=== PATIENT | female | born 1945 | race Caucasian/White ===

== ENCOUNTER 2017-08-23 16:45 | Inpatient (IN) ==
[2017-08-23] MEDS ORDERED: ONDANSETRON 4 MG/2 ML INJECTION IVP PRN (17:18)
--- NOTE | 2017-08-23 17:24 | History & Physical Report ---
History of Present Illness Date: 08/23/17 Chief complaint: Sepsis, UTI HPI: Viridiana is a 72-year-old female was evaluated acutely today at [facility] emergency room for altered mentation. Initially she was found to be hypotensive with a systolic blood pressure of 76. Further workup was completed in the emergency room. Patient was found to have an elevated white count of 17.6 , hemoglobin 13.2, hematocrit 38 him a platelet count 182. Sodium 142, potassium 4.5, BUN 34, creatinine 1.2, CRP 21, troponin undetectable. Her analysis was obtained showing trace blood, trace ketones, 1+ protein, positive nitrites, 2+ leukocytes esterase with 10-20 WBCs. INR 3.4. Plasma lactate was found to be elevated at 1.4 indicating sepsis process. Digoxin 1.42, proBNP 358. CXR reveled central pulmonary vascular congestion. In the severity of her acute illness, sepsis process was felt that patient needed intensive care unit treatment. [facility] was contacted by [facility] and accepted patient for direct admission as there are current ICU bed availability. Patient is seen on arrival to [facility]. She is sleeping. She is currently on room air without evidence of distress. She does have a very thick, moist sounding cough. BP Is noted to be in the 120 systolic on arrival. Heart rate in the 90s as she does appear to be in atrial fibrillation, which does not appear to be new. Patient is nonverbal and will not awaken or answer questions during examination. All of history and information is obtained from old records. It does appear patient is a long term resident at [facility] . She does have advanced dementia and it is reported that her is her DPOA whom wishes for her to be a do not resuscitate. Review of Systems ROS unobtainable: due to mental status Review of systems: Unable to obtain due to mental status Past Medical History Atrial fibrillation. Chronic anticoagulation= warfarin Coronary artery disease Type II diabetes Hypertension Parkinson's Dementia Hyperlipidemia overactive bladder Anxiety History of CVA History of ovarian cancer Surgical History: Heart catheterization-2013. Cardiac pacemaker. Appendectomy. Hysterectomy. Shoulder replacement Family History Updates: Mother-heart disease, cancer, diabetes - Social History Smoking status: Unknown if ever smoked Substance use type: does not use Alcohol intake frequency: does not drink Housing: long term ([facility]) Social history: Patient resides in [facility], [facility] facility. Patient's primary care provider is Dr. Emili Whittington Medications Allergies Allergy/AdvReac Type Severity Reaction Status Date / Time latex Allergy Intermediate Rash Verified 08/23/17 17:42 Exam Telemetry Rhythm: A-fib - Constitutional Present: moderate distress - Routine HEENT Exam ENT: Present: mucous membranes dry - Routine Respiratory Exam Present: crackles Comments: course breath sound throughout - Routine Cardiovascular Exam Present: S1, S2, tachycardia, irregular rhythm - Routine Abdominal Exam Present: soft, normoactive bowel sounds, non distended - Routine Extremities Exam Present: edema (trace BLE) - Routine Skin Exam Present: pallor - Routine Neurological Exam Present: altered mental status - Routine Psychiatric Exam Present: unable to assess Assessment and Plan (1) Sepsis Current visit: Yes Status: Acute (2) UTI (urinary tract infection) Current visit: Yes Status: Acute (3) A-fib Current visit: Yes Status: Chronic (4) HTN (hypertension) Current visit: Yes Status: Chronic Assessment and Plan: Impression Sepsis-, tachycardia, leukocytosis, suspected infection, elevated venous lactate Urinary tract infection Encephalopathy Cough Atrial fibrillation Hypertension Type II diabetes Coronary artery disease Parkinson's disease Dementia Chronic anticoagulation on warfarin Plan Admit to ICU under the care of Dr. Montgomery for sepsis, encephalopathy Transfer records and laboratory studies reviewed from earlier today. qSOAF score on admission is 2/3- indication high risk of poor outcome related to sepsis/infection As for sepsis protocol, We will repeat venous lactate, pro calcitonin on admission. Blood cultures were obtained at [place] emergency room today. Need to find out if urine culture was obtained- Order placed for nursing staff to call [facility] ER. Obtain viral respiratory panel given significance in coughing Will continue with IV Rocephin and will add IV is azithromycin for further pulmonary coverage. Will recheck a chest x-ray tomorrow morning Consult placed respiratory therapy with NT suction as needed. They were able to obtain a sputum sample, will send this for culture, Gram stain. Will schedule DuoNeb breathing treatments 4 times a day and Pulmicort twice a day. Normal saline at 100 ML per hour for gentle hydration. Will need to monitor for evidence of fluid overload. Monitor on cardiac telemetry, he does have a known history of atrial fibrillation. Will need to monitor for any rapid rates. Speech therapy consultation is placed. Given concern for dysphasia and altered mental status. She may not be able to take oral medications. Recheck CBC, BMP and INR tomorrow morning to follow blood counts, renal function and electrolytes. Consult placed to pharmacy for management of chronic warfarin dosing. INR today was 3.4. Do not resuscitate order was sent with patient, and this order is written upon admission. Discuss further orders and plan of care with attending, Dr. Montgomery. At time of discharge medical care will return to patient's primary care provider in [place], Dr. Emili Whittington 08/23/2017-8:27 PM-I reviewed this chart, the patient history, and the DRY CHAIN PULLER's/PA 's documented findings as above. We discussed and formulated the assessment and plan as above with the additions below.-Dr. Montgomery The patient was seen this evening in CCU. Currently no family is present, a left to go to supper per her nurse. Per her nurse, family states that the patient is mostly nonverbal. She will occasionally say some words, but they do not make sense. Currently the patient is responsive to voice and touch. She will moan. She does not attempt to speak. I am unable to obtain any history from her, and history is obtained from old records and discussion with ER DrNino at [facility]. Currently temperature is 100.4 axillary, blood pressure is 107/57, pulse 86, O2 sat 93%, respiratory rate 25, she is on room air. On exam she is responsive to touch and voice. She is moaning. She appears chronically ill. HEENT reveals eyes to be closed, pupils are equal on exam but it is difficult as she does not assist. Oropharynx is continuously open and mouth is somewhat dry. Chest is clear to auscultation but somewhat difficult to assess due to continuous moaning. Cardiovascular reveals an irregularly irregular rhythm. Abdomen is soft , non-distended with hypoactive bowel sounds. Extremities are free of edema. SCDs are on. Viral respiratory panel is positive for human metapneumo virus Lactate is 2.0 up from 1.4. Pro calcitonin 0.4 Assessment and plan Sepsis-possibly secondary to human that a virus, versus UTI-we'll give Rocephin for possible UTI Azithromycin was added when there was concern for possible pneumonia, but with viral URI on viral respiratory panel, will discontinue azithromycin if there is no pneumonia on chest x-ray tomorrow. Repeat lactate later today. Urine output has decreased and will give a 500 cc normal saline fluid bolus now. Repeat 1 if needed. Will start scheduled rectal Tylenol for pain and fever Will have when necessary Ativan IV available. She is chronically on oral Ativan. Will add IV morphine if needed for pain controlled with Tylenol. The patient apparently has end-stage dementia. Will discuss further plans of care with family. We'll consult speech therapy to see the patient in the morning to see if she is able to swallow. Patient is DO NOT RESUSCITATE per her . Greater than 40 minutes of critical care time spent seeing and evaluating the patient in determining care plan. DVT Prophylaxis: Coumadin - Physician Narrative Narrative: Date: 08/23/17 Time: 1724 Hospital Course Summary Disclaimer: The visit summary below is not to be considered part of the above Progress Note. Hospital Course: Impression Sepsis-, tachycardia, leukocytosis, suspected infection, elevated venous lactate Urinary tract infection Encephalopathy Cough Atrial fibrillation Hypertension Type II diabetes Coronary artery disease Parkinson's disease Dementia Chronic anticoagulation on warfarin Plan Admit to ICU under the care of Dr. Montgomery for sepsis, encephalopathy Transfer records and laboratory studies reviewed from earlier today. qSOAF score on admission is 2/3- indication high risk of poor outcome related to sepsis/infection As for sepsis protocol, We will repeat venous lactate, pro calcitonin on admission. Blood cultures were obtained at [place] emergency room today. Need to find out if urine culture was obtained- Order placed for nursing staff to call [facility]. Obtain viral respiratory panel given significance in coughing Will continue with IV Rocephin and will add IV is azithromycin for further pulmonary coverage. Will recheck a chest x-ray tomorrow morning Consult placed respiratory therapy with NT suction as needed. They were able to obtain a sputum sample, will send this for culture, Gram stain. Will schedule DuoNeb breathing treatments 4 times a day and Pulmicort twice a day. Normal saline at 100 ML per hour for gentle hydration. Will need to monitor for evidence of fluid overload. Monitor on cardiac telemetry, he does have a known history of atrial fibrillation. Will need to monitor for any rapid rates. Speech therapy consultation is placed. Given concern for dysphasia and altered mental status. She may not be able to take oral medications. Recheck CBC, BMP and INR tomorrow morning to follow blood counts, renal function and electrolytes. Consult placed to pharmacy for management of chronic warfarin dosing. INR today was 3.4. Do not resuscitate order was sent with patient, and this order is written upon admission. Discuss further orders and plan of care with attending, Dr. Montgomery. At time of discharge medical care will return to patient's primary care provider in [place], Dr. Emili Whittington
[2017-08-23] MEDS: NS 1,000 ML IV SCH (17:44)
[2017-08-23] MEDS ORDERED: WARFARIN - PHARMACY CONSULT MC ONE (17:47)
[2017-08-23] MEDS ORDERED: AZITHROMYCIN IV 500 MG in NS 250ml 250 ML IV SCH (18:00)
--- NOTE | 2017-08-23 18:11 | Pharmacy Consult ---
Pharmacy Consult-Warfarin - Laboratory Information WARFARIN THERAPY: Pt has Hx of chronic A. Fib, CAD, CVA. On warfarin - home dose not yet available. Current INR reported as 3.4. No dose tonight. INR ordered for morning. Thank you
[2017-08-23] MEDS: ACETAMINOPHEN 650 MG SUPPOSITORY PR SCH (20:39)
[2017-08-23] MEDS: ALBUTEROL/IPRATROPIUM 2.5mg-0.5mg/3ml NEB AEROSOL SCH (21:13)
[2017-08-23] MEDS: BUDESONIDE INH.SOLN 0.5mg/2ml NEB IPPB SCH (21:13)
[2017-08-23] MEDS: MORPHINE SULFATE 2mg INJECTION IVP PRN (21:39)
[2017-08-24] MEDS: NS 1,000 ML IV SCH (02:48)
[2017-08-24] MEDS: MORPHINE SULFATE 2mg INJECTION IVP PRN ×3 (03:21→08:31)
--- NOTE | 2017-08-24 07:55 | Pharmacy Consult ---
Pharmacy Consult-Warfarin - Laboratory Information 08/24/17 05:31 INR 3.95 H - Consult Information Warfarin Dosing Protocol, DC is a 72 yo that was admitted for sepsis and pneumonia (from [facility]). The patient has a history history of chronic A. Fib, CAD, and CVA. The patient is currently on anticoagulation therapy with a daily dose of Warfarin 2.5 mg oraly at 1900 daily. Date INR Dose 08/23 3.40 No dose given 08/24 3.95 No dose today The patient's INR was high when she came into the facility and it has increased today. This is due to the IV azithromycin which definitely increases the INR. I will hold the Warfarin dose today. The pharmacy will continue to monitor the INR's and will adjust the warfarin therapy accordingly. Thanks for the Warfarin Dosing Protocol, Ronaldo Campbell, Pharmacist
--- NOTE | 2017-08-24 08:09 | Progress Note ---
- Date 08/24/17 Subjective: As seen this morning in CCU. Currently no family is present. Per her nurse, she was more restless overnight and received Ativan and morphine. After that blood pressure was down into the high 80s but map was above 65. Oxygen saturation was 88-90% on room air. Urine output overnight was decreased and she has only had 328 mL's since admission. During examination this morning, the patient is more arousable. She is moaning, but opens her eyes and looks at me. She appears to attempt to answer questions but I cannot understand her. Objective Vital signs: Temperature 98.7 F 08/24/17 05:45 Pulse Rate 80 08/24/17 06:15 Respiratory Rate 18 08/24/17 06:15 Blood Pressure 93/55 08/24/17 06:15 Pulse Oximetry 92 08/24/17 06:15 Height/Weight/BMI: Height 1.65 m Weight 70 kg Body Mass Index 25.7 Comments: MAXIMUM TEMPERATURE 101.2, O2 sat currently 98% on room air, blood pressure 115/ 58, respirations 15 I&O since admission 2170/328 GEN-more alert, moaning, does not appear in distress HEENT-sclera anicteric, oropharynx is dry, she does have some mouth breathing CV-regularly irregular with controlled rate CHEST-clear anteriorly ABD-soft, nontender, hypoactive bowel sounds -Tapia catheter in place with dark urine EXT-no edema NEURO-significant for encephalopathy, tremors from Parkinson's SKIN-warm and dry, skin breakdown on the anterior shins. We'll DC SCDs Results - Labs CBC & Chem 7: 08/24/17 05:31 08/24/17 05:31 Labs: White count is 16.6 down from 17.6 yesterday. Sodium is 150 up from 140 to yesterday. Creatinine is 0.8 down from 1.2 yesterday. BUN is stable at 34. Initial lactate yesterday was 2.0 and improved to 1.3 Pro-calcitonin 0.4 Microbiology Results: Microbiology 08/23/17 17:57 Sputum, Induced Gram Stain - Final 08/23/17 17:57 Sputum, Induced Sputum Culture - Final Assessment and Plan (1) Sepsis Current visit: Yes Status: Acute (2) UTI (urinary tract infection) Current visit: Yes Status: Acute (3) A-fib Current visit: Yes Status: Chronic (4) HTN (hypertension) Current visit: Yes Status: Chronic Assessment and Plan: Impression Sepsis-, tachycardia, leukocytosis, suspected infection, elevated venous lactate Urinary tract infection Human metapneumovirus Possible pneumonia Encephalopathy Atrial fibrillation Hypertension Type II diabetes Coronary artery disease Parkinson's disease Dementia Chronic anticoagulation on warfarin-mild supratherapeutic INR Hypernatremia Chronic Ativan use Decreased urine output Plan Overall, the patient has done okay overnight. Vitals are fairly stable. qSOAF score on admission is 2/3- indication high risk of poor outcome related to sepsis/infection Lactate was 2.0 and improved to 1.3. She has not required supplemental oxygen. She has not had significant hypotension. Continue Rocephin for possible UTI. Azithromycin added for possible pneumonia with productive cough. Will continue with IV Rocephin and will add IV is azithromycin for further pulmonary coverage. Chest x-ray official report is pending but appears to show infiltrate versus edema on the right. Sputum culture was obtained and is pending. Continue DuoNeb breathing treatments 4 times a day and Pulmicort twice a day. Speech therapy consultation is placed. Given concern for dysphasia and altered mental status. She may not be able to take oral medications. Recheck CBC, BMP and INR tomorrow morning to follow blood counts, renal function and electrolytes. Continue Tylenol scheduled for pain. Ativan when necessary for anxiety, she is on chronic Ativan at home. Limit morphine if able. Hopefully, the patient will be able to swallow well today and we can resume her home medications Change IV fluids to half-normal saline with 20 of KCl to run at 125 an hour Check CBC and, renal panel and magnesium tomorrow Repeat chest x-ray tomorrow Discussed with the patient's and nurse. Greater than 40 minutes of critical care time spent seeing and evaluating the patient and determined the care plan. GI Prophylaxis: Pepcid Resuscitation Status: Do Not Resuscitate - Physician Narrative Physician: Padmini Pacheco MD Narrative: Date: 08/24/17 Time: 0805 Hospital Course Summary Disclaimer: The visit summary below is not to be considered part of the above Progress Note. Hospital Course: Impression Sepsis-, tachycardia, leukocytosis, suspected infection, elevated venous lactate Urinary tract infection Encephalopathy Cough Atrial fibrillation Hypertension Type II diabetes Coronary artery disease Parkinson's disease Dementia Chronic anticoagulation on warfarin Plan Admit to ICU under the care of Dr. Montgomery for sepsis, encephalopathy Transfer records and laboratory studies reviewed from earlier today. qSOAF score on admission is 2/3- indication high risk of poor outcome related to sepsis/infection As for sepsis protocol, We will repeat venous lactate, pro calcitonin on admission. Blood cultures were obtained at [place] emergency room today. Need to find out if urine culture was obtained- Order placed for nursing staff to call [facility] ER. Obtain viral respiratory panel given significance in coughing Will continue with IV Rocephin and will add IV is azithromycin for further pulmonary coverage. Will recheck a chest x-ray tomorrow morning Consult placed respiratory therapy with NT suction as needed. They were able to obtain a sputum sample, will send this for culture, Gram stain. Will schedule DuoNeb breathing treatments 4 times a day and Pulmicort twice a day. Normal saline at 100 ML per hour for gentle hydration. Will need to monitor for evidence of fluid overload. Monitor on cardiac telemetry, he does have a known history of atrial fibrillation. Will need to monitor for any rapid rates. Speech therapy consultation is placed. Given concern for dysphasia and altered mental status. She may not be able to take oral medications. Recheck CBC, BMP and INR tomorrow morning to follow blood counts, renal function and electrolytes. Consult placed to pharmacy for management of chronic warfarin dosing. INR today was 3.4. Do not resuscitate order was sent with patient, and this order is written upon admission. Discuss further orders and plan of care with attending, Dr. Montgomery. At time of discharge medical care will return to patient's primary care provider in [place], Dr. Emili Whittington 08/23/2017-8:27 PM-I reviewed this chart, the patient history, and the CLOTH SHEARING SUPERVISOR's/PA 's documented findings as above. We discussed and formulated the assessment and plan as above with the additions below.-Dr. Montgomery The patient was seen this evening in CCU. Currently no family is present, a left to go to supper per her nurse. Per her nurse, family states that the patient is mostly nonverbal. She will occasionally say some words, but they do not make sense. Currently the patient is responsive to voice and touch. She will moan. She does not attempt to speak. I am unable to obtain any history from her, and history is obtained from old records and discussion with ER at [facility]. Currently temperature is 100.4 axillary, blood pressure is 107/57, pulse 86, O2 sat 93%, respiratory rate 25, she is on room air. On exam she is responsive to touch and voice. She is moaning. She appears chronically ill. HEENT reveals eyes to be closed, pupils are equal on exam but it is difficult as she does not assist. Oropharynx is continuously open and mouth is somewhat dry. Chest is clear to auscultation but somewhat difficult to assess due to continuous moaning. Cardiovascular reveals an irregularly irregular rhythm. Abdomen is soft , non-distended with hypoactive bowel sounds. Extremities are free of edema. SCDs are on. Viral respiratory panel is positive for human metapneumo virus Lactate is 2.0 up from 1.4. Pro calcitonin 0.4 Assessment and plan Sepsis-possibly secondary to human that a virus, versus UTI-we'll give Rocephin for possible UTI Azithromycin was added when there was concern for possible pneumonia, but with viral URI on viral respiratory panel, will discontinue azithromycin if there is no pneumonia on chest x-ray tomorrow. Repeat lactate later today. Urine output has decreased and will give a 500 cc normal saline fluid bolus now. Repeat 1 if needed. Will start scheduled rectal Tylenol for pain and fever Will have when necessary Ativan IV available. She is chronically on oral Ativan. Will add IV morphine if needed for pain controlled with Tylenol. The patient apparently has end-stage dementia. Will discuss further plans of care with family. We'll consult speech therapy to see the patient in the morning to see if she is able to swallow. Patient is DO NOT RESUSCITATE per her . Greater than 40 minutes of critical care time spent seeing and evaluating the patient in determining care plan.
[2017-08-24] MEDS: 1/2 NS 1,000 ML IV SCH ×2 (08:20→22:45)
[2017-08-24] MEDS: ACETAMINOPHEN 650 MG SUPPOSITORY PR SCH ×4 (08:20→23:12)
--- NOTE | 2017-08-24 08:28 | XRay Report ---
Indication: sepsis, coughing PROCEDURE: XR chest 1V: Encounter: Initial Comparison: None Findings: Airspace consolidation in the right mid to lower lung field with an elevated right hemidiaphragm and small right effusion. No pneumothorax. Left lung appears clear. Heart size and mediastinal contours are normal. Left pacemaker pulmonary vascularity appears normal on the left. Left shoulder replacement. Severe degenerative change in the right shoulder. Impression: Right-sided pneumonia or aspiration. .
[2017-08-24] MEDS ORDERED: VANCOMYCIN - PHARMACY CONSULT MC ONE (08:50)
[2017-08-24] MEDS: BUDESONIDE INH.SOLN 0.5mg/2ml NEB IPPB SCH ×2 (08:57→20:36)
[2017-08-24] MEDS: ALBUTEROL/IPRATROPIUM 2.5mg-0.5mg/3ml NEB AEROSOL SCH ×4 (08:57→20:36)
[2017-08-24] MEDS ORDERED: CEFTRIAXONE 1 G in NS 100 ML IV SCH (09:00)
[2017-08-24] MEDS: PIPERACILLIN/TAZOBACTAM 3.375 GM in NS 100 ML IV SCH ×3 (10:03→22:43)
--- NOTE | 2017-08-24 10:49 | Pharmacy Consult-Antibiotics ---
Pharmacy Consult-Vancomycin - Laboratory Information WBC 16.6 T/MM3 (4.5-11.0) H 08/24/17 05:31 BUN 34.0 MG/DL (7-17) H 08/24/17 05:31 Creatinine 0.8 MG/DL (0.7-1.2) 08/24/17 05:31 Procalcitonin 0.40 NG/ML 08/23/17 17:56 - Consult Information VANCOMYCIN CONSULT: 72 yr female 5'5" 72.7 kg Dx: Sepsis,Encephalopathy,possible Pneumonia Current Renal Fx: SCr = 0.8 mg/dl. Will give Vancomycin 1750 mg IV q24hrs. Will continue to monitor and adjust regimen to maintain therapeutic levels. Thank you. Kate Bishop PharmD
[2017-08-24] MEDS: FAMOTIDINE PB 20 MG/50 ML BAG IV SCH ×2 (11:46→23:32)
--- NOTE | 2017-08-24 15:23 | Wound Care Progress Note ---
Wound Center Progress Note: Pt seen for wound consultation, seen with Shantelle RN. Pt lying in bed, at bedside, no complaints of pain. Pt wears briefs at home and is incontinent. Consult r/t wounds on L buttock and bilateral anterior lower legs. L buttock: Stage 2 PI, wound bed has pink non-granulating tissue, no drainage on dressing removed. Periwound: blanchable erythema. Bilateral anterior lower legs: states he believes these wounds are do to pt rubbing up against the lift. Multiple scattered crusts/scabs, no open areas at this time, no drainage. Periwound: blanchable erythema. Wound dressings: To L buttock: Clean with wound cleanser, apply barrier cream, cover with mepilex border, and off load, change q 3 days and PRN. To bilateral lower legs: Clean with cleanser, apply A&D ointment daily. Heels: pink and blanchable. Off load with regular repositioning, float heels.
--- NOTE | 2017-08-24 15:26 | Wound Care Progress Note ---
Wound Management - Patient Status Premedicated Prior to Dressing Change: No - Wound Bilateral Lower Anterior Leg Wound Type: Abrasion Wound Present on Admission?: Yes Length: 6 (composite) Width: 3 (composite) Depth: 0.1 Magi Wound Appearance: [place] Tunneling: No Undermining: No Drainage Amount: None Drainage Odor: No Odor Dressing Status: Open to Air Dressing Change Date: 08/24/17 Dressing Change Time: 12:50 Dressing Change Patient Tolerance: Tolerated Well (A&D applied to bilateral anterior legs, change daily and PRN) Microbiology: Microbiology 08/23/17 17:57 Sputum, Induced Gram Stain - Final 08/23/17 17:57 Sputum, Induced Sputum Culture - Final Left Medial Buttock Wound Type: Pressure Injury Wound Present on Admission?: Yes Wound Staging: Stage II Length: 2 Width: 1.3 Depth: 0.1 Wound Bed Appearance: [place] Magi Wound Appearance: [place] Tunneling: No Undermining: No Drainage Amount: None Drainage Odor: No Odor Dressing Status: Changed Secondary Dressing: Foam Dressing Dressing Change Date: 08/24/17 Dressing Change Time: 12:50 Dressing Change Patient Tolerance: Tolerated Well (Barrier cream applied, covered with Mepilex, change q 3 days and PRN.) Microbiology: Microbiology 08/23/17 17:57 Sputum, Induced Gram Stain - Final 08/23/17 17:57 Sputum, Induced Sputum Culture - Final
[2017-08-24] MEDS ORDERED: FALL RISK - PHARMACY CONSULT XX ONE (17:38)
[2017-08-24] MEDS ORDERED: NITROGLYCERIN 0.4 MG SUBLINGUAL TABLET SL PRN (18:55)
[2017-08-24] MEDS ORDERED: BISACODYL 10 MG SUPPOSITORY RECTALLY PRN (18:55)
[2017-08-24] MEDS: LORazepam 0.5 MG TABLET PO SCH (23:11)
[2017-08-24] MEDS: ATORVASTATIN 20 MG TABLET PO SCH (23:12)
[2017-08-24] MEDS: BUSPIRONE 10 MG TABLET PO SCH (23:12)
[2017-08-24] MEDS: DONEPEZIL 10 MG TABLET PO SCH (23:12)
[2017-08-24] MEDS: ROPINIROLE 3 MG TABLET PO SCH (23:13)
[2017-08-25] MEDS: 1/2 NS with KCL 20mEq 1,000 ML IV SCH ×3 (01:02→05:23)
[2017-08-25] MEDS: PIPERACILLIN/TAZOBACTAM 3.375 GM in NS 100 ML IV SCH ×5 (04:36→21:09)
[2017-08-25] MEDS: D5W 1,000 ML IV SCH (05:56)
[2017-08-25] MEDS: MORPHINE SULFATE 2mg INJECTION IVP PRN ×3 (06:05→14:57)
[2017-08-25] MEDS: BUDESONIDE INH.SOLN 0.5mg/2ml NEB IPPB SCH ×2 (08:03→19:57)
[2017-08-25] MEDS: ALBUTEROL/IPRATROPIUM 2.5mg-0.5mg/3ml NEB AEROSOL SCH (08:03)
[2017-08-25] MEDS: FAMOTIDINE PB 20 MG/50 ML BAG IV SCH (08:17)
[2017-08-25] MEDS: DIGOXIN 125 MCG TABLET PO SCH (08:48)
[2017-08-25] MEDS: ACETAMINOPHEN 650 MG SUPPOSITORY PR SCH ×4 (08:49→21:03)
[2017-08-25] MEDS: LORazepam 0.5 MG TABLET PO SCH ×2 (08:49→21:07)
[2017-08-25] MEDS: ROPINIROLE 3 MG TABLET PO SCH ×3 (08:50→21:09)
[2017-08-25] MEDS: BUSPIRONE 10 MG TABLET PO SCH ×2 (08:51→21:07)
--- NOTE | 2017-08-25 09:11 | Progress Note ---
- Date 08/25/17 Subjective: 72y/o female was evaluated acutely on 08/23/16 at [facility] emergency room for altered mentation. Initially she was found to be hypotensive with a systolic blood pressure of 76. Further workup was completed in the emergency room. Patient was found to have an elevated white count of 17.6, hemoglobin 13.2, hematocrit 38 him a platelet count 182. Sodium 142, potassium 4.5, BUN 34, creatinine 1.2, CRP 21, troponin undetectable. Urine analysis was obtained showing trace blood, trace ketones, 1+ protein, positive nitrites, 2+ leukocytes esterase with 10-20 WBCs. INR 3.4. Plasma lactate was found to be elevated at 1.4 indicating sepsis process. Digoxin 1.42, proBNP 358. CXR revealed central pulmonary vascular congestion. In the severity of her acute illness and sepsis it was felt that patient needed intensive care unit treatment. [facility] [place] so [facility] was contacted and accepted patient for direct admission as there are current ICU bed availability. Patient was seen on arrival to [facility]. She was sleeping. She was on room air without evidence of distress. She has a very thick, moist sounding cough. BP was noted to be in the 120 systolic on arrival. Heart rate in the 90s as she does appear to be in atrial fibrillation, which does not appear to be new. Patient was nonverbal and will not awaken or answer questions during examination. All of history and information is obtained from old records. It does appear patient is a [facility]p resident at [facility] . She does have advanced dementia and it is reported that her is her DPOA whom wishes for her to be a do not resuscitate. 08/24/16: Pt seen. No family present. Per her nurse, she was more restless overnight and received Ativan and morphine. After that blood pressure was down into the high 80s but map was above 65. Oxygen saturation was 88-90% on room air. Urine output overnight was decreased and she has only had 328 mL's since admission. During the examination, the patient is more arousable. She is moaning , but opens her eyes and looks at me. She appears to attempt to answer questions but I cannot understand her. Today, her is in the room. The patient is being fed breakfast. She is talking that is not understandable and her says that's pretty much baseline for her. She is unable to answer any questions appropriately for me. She cannot tell me her name. She tells me she's not in any pain. She denies feeling shortness of breath. She has a very course moist cough. She is not spinning anything out. She is on 2 L by nasal cannula. Her saturations are good. Her blood pressure and heart rate or within normal limits. She has a Tapia in place. Further review of systems is relatively unobtainable due to her confusion and inability to communicate appropriately. Objective Vital signs: Temperature 96.8 F 08/24/17 16:00 Pulse Rate 81 08/25/17 08:48 Respiratory Rate 18 08/25/17 08:03 Blood Pressure 115/55 08/25/17 04:30 Pulse Oximetry 97 08/25/17 08:03 Height/Weight/BMI: Height 1.65 m Weight 72.7 kg Body Mass Index 26.6 Comments: Gen: confused. Not oriented to person, place or time. at bedside states this is baseline. Skin: warm and dry HEENT: NC/AT PERRL, EOMI. Sclera, lids and conjunctiva wnl. MMM, OP clear. Neck: supple. No JVD. Carotids 2+ without bruits Lungs: very coarse wet sounding breath sounds. No wheezes. Upper airway congestion. CV: irregular, No murmur, rub or gallop No edema. Palpable pedal pulses. Abd: Soft, NT/ND. +BS. MS: CARLTON Neuro: VINCENT, Neuro exam is really untestable do to inability to understand directions. She is swollowing okay. Results - Labs CBC & Chem 7: 08/25/17 05:10 08/25/17 05:10 Microbiology Results: Microbiology 08/23/17 17:57 Sputum, Induced Gram Stain - Final 08/23/17 17:57 Sputum, Induced Sputum Culture - Final Assessment and Plan (1) Sepsis Current visit: Yes Status: Acute (2) UTI (urinary tract infection) Current visit: Yes Status: Acute (3) A-fib Current visit: Yes Status: Chronic (4) HTN (hypertension) Current visit: Yes Status: Chronic Assessment and Plan: Assessment and Plan: 1. Sepsis-, tachycardia, leukocytosis, elevated venous lactate -UTI -Human metapneuomovirus -On vanco and zosyn 2. Encephalopathy -Baseline severe dementia- thinks she is back to baseling -Likely worsened by infection 3. Urinary tract infection -On vanco and zosyn 4. Human metapneumovirus -Resp therapy 5. Permanent Atrial fibrillation-S/P PPM -rates controlled. -Patient on digoxin and Coumadin 6. Right side PNA or aspiration on CXR 08/24/17 -Resp therapy -Vanco and zosyn 7. Hypertension -blood pressures are well controlled off her home medications of core egg 6.25 mg BID, lisinopril 5 mg daily and injured 30 mg daily. 8. Type II diabetes -blood sugars appear to be fairly well controlled. 9. Coronary artery disease -difficult to assess but does not appear to be any current pain. -Was not on aspirin at home only the Coumadin. -Was on Ranexa and Imdur as well as coreg for anti-anginal medications at home. -History of 2 stents -her dye range tender is Dr. Nino Wheeler 10.Parkinson's disease -on Sinemet. 11. Severe Dementia -patient is on Aricept -I did discuss the possibility of comfort care with the . 12. Supratherapeutic INR -No signs of bleeding -continue to hold coumadin 13. Hypernatremia -this is up again today. -Her IV fluids have been changed to D5 water at 75ml/hr.. -Will recheck lab in a.m. 14. Chronic Ativan use -Continue 15. Dysphagia -speech did evaluate the patient and recommended pured food and thickened liquids. Recommended crushing meds and applesauce for intake. 16. Prophylaxis -PPI and pt supratherapeutic on coumadin I discussed with the today the concept of comfort care. I told him that' s an option and that perhaps he can discuss with the rest of family members if this is something they might want to consider. Greater than 40 minutes of critical care time was spent seeing and evaluating the patient. - Physician Narrative Narrative: Date: 08/25/17 Time: 906 Hospital Course Summary Disclaimer: The visit summary below is not to be considered part of the above Progress Note. Hospital Course: Impression Sepsis-, tachycardia, leukocytosis, suspected infection, elevated venous lactate Urinary tract infection Encephalopathy Cough Atrial fibrillation Hypertension Type II diabetes Coronary artery disease Parkinson's disease Dementia Chronic anticoagulation on warfarin Plan Admit to ICU under the care of Dr. Montgomery for sepsis, encephalopathy Transfer records and laboratory studies reviewed from earlier today. qSOAF score on admission is 2/3- indication high risk of poor outcome related to sepsis/infection As for sepsis protocol, We will repeat venous lactate, pro calcitonin on admission. Blood cultures were obtained at [place] emergency room today. Need to find out if urine culture was obtained- Order placed for nursing staff to call [facility]. Obtain viral respiratory panel given significance in coughing Will continue with IV Rocephin and will add IV is azithromycin for further pulmonary coverage. Will recheck a chest x-ray tomorrow morning Consult placed respiratory therapy with NT suction as needed. They were able to obtain a sputum sample, will send this for culture, Gram stain. Will schedule DuoNeb breathing treatments 4 times a day and Pulmicort twice a day. Normal saline at 100 ML per hour for gentle hydration. Will need to monitor for evidence of fluid overload. Monitor on cardiac telemetry, he does have a known history of atrial fibrillation. Will need to monitor for any rapid rates. Speech therapy consultation is placed. Given concern for dysphasia and altered mental status. She may not be able to take oral medications. Recheck CBC, BMP and INR tomorrow morning to follow blood counts, renal function and electrolytes. Consult placed to pharmacy for management of chronic warfarin dosing. INR today was 3.4. Do not resuscitate order was sent with patient, and this order is written upon admission. Discuss further orders and plan of care with attending, Dr. Montgomery. At time of discharge medical care will return to patient's primary care provider in [place], Dr. Emili Whittington 08/23/2017-8:27 PM-I reviewed this chart, the patient history, and the TRAVERSE ROD ASSEMBLER's/PA 's documented findings as above. We discussed and formulated the assessment and plan as above with the additions below.-Dr. Montgomery The patient was seen this evening in CCU. Currently no family is present, a left to go to supper per her nurse. Per her nurse, family states that the patient is mostly nonverbal. She will occasionally say some words, but they do not make sense. Currently the patient is responsive to voice and touch. She will moan. She does not attempt to speak. I am unable to obtain any history from her, and history is obtained from old records and discussion with ER at [facility]. Currently temperature is 100.4 axillary, blood pressure is 107/57, pulse 86, O2 sat 93%, respiratory rate 25, she is on room air. On exam she is responsive to touch and voice. She is moaning. She appears chronically ill. HEENT reveals eyes to be closed, pupils are equal on exam but it is difficult as she does not assist. Oropharynx is continuously open and mouth is somewhat dry. Chest is clear to auscultation but somewhat difficult to assess due to continuous moaning. Cardiovascular reveals an irregularly irregular rhythm. Abdomen is soft , non-distended with hypoactive bowel sounds. Extremities are free of edema. SCDs are on. Viral respiratory panel is positive for human metapneumo virus Lactate is 2.0 up from 1.4. Pro calcitonin 0.4 Assessment and plan Sepsis-possibly secondary to human that a virus, versus UTI-we'll give Rocephin for possible UTI Azithromycin was added when there was concern for possible pneumonia, but with viral URI on viral respiratory panel, will discontinue azithromycin if there is no pneumonia on chest x-ray tomorrow. Repeat lactate later today. Urine output has decreased and will give a 500 cc normal saline fluid bolus now. Repeat 1 if needed. Will start scheduled rectal Tylenol for pain and fever Will have when necessary Ativan IV available. She is chronically on oral Ativan. Will add IV morphine if needed for pain controlled with Tylenol. The patient apparently has end-stage dementia. Will discuss further plans of care with family. We'll consult speech therapy to see the patient in the morning to see if she is able to swallow. Patient is DO NOT RESUSCITATE per her . Greater than 40 minutes of critical care time spent seeing and evaluating the patient in determining care plan.
[2017-08-25] MEDS ORDERED: PHYTONADIONE 5 MG/2.5 ML ORAL LIQUID PO ONE (11:05)
--- NOTE | 2017-08-25 11:31 | Pharmacy Consult ---
Pharmacy Consult-Warfarin - Laboratory Information 08/24/17 08/25/17 05:31 05:10 INR 3.95 H 7.68 H* - Consult Information Warfarin Dosing Protocol, DC is a 72 yo that was admitted for sepsis and pneumonia (from [facility]). The patient has a history history of chronic A. Fib, CAD, and CVA. The patient is currently on anticoagulation therapy with a daily dose of Warfarin 2.5 mg oraly at 1900 daily. Date INR Dose 08/23 3.40 No dose given 08/24 3.95 No dose today 08/25 7.68 Vit K 2 mg p.o. and will HOLD warfarin today The patient's INR was supratherapeutic today. I will give Vitamin K 2 mg p.o. now and hold the Warfarin dose today. The pharmacy will continue to monitor the INR's and will adjust the warfarin therapy accordingly. Thanks for the Warfarin Dosing Protocol, Ronaldo Campbell, Pharmacist
[2017-08-25] MEDS: SERTRALINE 100 MG TABLET PO SCH (11:35)
[2017-08-25] MEDS: ALBUTEROL/IPRATROPIUM 2.5mg-0.5mg/3ml NEB IPPB SCH ×4 (12:12→19:57)
[2017-08-25] MEDS: PANTOPRAZOLE 40 MG TABLET PO SCH (17:10)
[2017-08-25] MEDS: ATORVASTATIN 20 MG TABLET PO SCH (21:06)
[2017-08-25] MEDS: DONEPEZIL 10 MG TABLET PO SCH (21:07)
[2017-08-26] MEDS: MORPHINE SULFATE 2mg INJECTION IVP PRN (00:23)
[2017-08-26] MEDS: D5W 1,000 ML IV SCH ×2 (00:24→15:26)
[2017-08-26] MEDS: PIPERACILLIN/TAZOBACTAM 3.375 GM in NS 100 ML IV SCH ×4 (03:24→21:18)
[2017-08-26] MEDS: PANTOPRAZOLE 40 MG TABLET PO SCH ×2 (05:58→18:20)
[2017-08-26] MEDS: BUDESONIDE INH.SOLN 0.5mg/2ml NEB IPPB SCH ×2 (06:40→19:14)
[2017-08-26] MEDS: ALBUTEROL/IPRATROPIUM 2.5mg-0.5mg/3ml NEB IPPB SCH ×4 (06:40→19:14)
--- NOTE | 2017-08-26 09:14 | Pharmacy Consult ---
Pharmacy Consult-Warfarin - Laboratory Information 08/24/17 08/25/17 08/26/17 05:31 05:10 04:07 INR 3.95 H 7.68 H* 1.85 H - Consult Information Warfarin Dosing Protocol, DC is a 72 yo that was admitted for sepsis and pneumonia (from [facility]). The patient has a history history of chronic A. Fib, CAD, and CVA. The patient is currently on anticoagulation therapy with a daily dose of Warfarin 2.5 mg oraly at 1900 daily. Date INR Dose 08/23 3.40 No dose given 08/24 3.95 No dose today 08/25 7.68 Vit K 2 mg p.o. and will HOLD warfarin today 08/26 1.85 Plan Warfarin 1.25 mg The patient's INR was subtherapeutic today. The INR came down nicely after one dose of vitamin K 2 mg by mouth. I will give Warfarin 1.25 mg today as I do not want to cause a fast rise in the INR. The pharmacy will continue to monitor the INR's and will adjust the warfarin therapy accordingly. Thanks for the Warfarin Dosing Protocol, Ronaldo Campbell, Pharmacist
[2017-08-26] MEDS: DIGOXIN 125 MCG TABLET PO SCH (09:54)
[2017-08-26] MEDS: ACETAMINOPHEN 650 MG SUPPOSITORY PR SCH ×4 (09:57→21:05)
[2017-08-26] MEDS: BUSPIRONE 10 MG TABLET PO SCH ×2 (09:57→21:23)
[2017-08-26] MEDS: LORazepam 0.5 MG TABLET PO SCH ×2 (09:57→21:22)
[2017-08-26] MEDS: ROPINIROLE 3 MG TABLET PO SCH ×3 (09:57→21:22)
--- NOTE | 2017-08-26 10:43 | XRay Report ---
Indication: Follow up Right side PNA PROCEDURE: XR chest 1V: Encounter: Initial Comparison: August 24, 2017 Findings: Significant interval worsening in appearance of the chest with severe consolidation of the right lung and a large right pleural effusion that has significantly increased in size. Left lung is grossly clear. No pneumothorax. Heart size and mediastinal contours are obscured on this projection due to the right-sided effusion. Left pacemaker. Impression: Marked interval worsening in right effusion. .
[2017-08-26] MEDS: SERTRALINE 100 MG TABLET PO SCH ×2 (12:22→12:30)
[2017-08-26] MEDS: WARFARIN 2.5 MG TABLET PO SCH ×2 (12:23→12:31)
--- NOTE | 2017-08-26 13:48 | Progress Note ---
- Date 08/26/17 Subjective: 72y/o female was evaluated acutely on 08/23/16 at [facility] emergency room for altered mentation. Initially she was found to be hypotensive with a systolic blood pressure of 76. Further workup was completed in the emergency room. Patient was found to have an elevated white count of 17.6, hemoglobin 13.2, hematocrit 38 him a platelet count 182. Sodium 142, potassium 4.5, BUN 34, creatinine 1.2, CRP 21, troponin undetectable. Urine analysis was obtained showing trace blood, trace ketones, 1+ protein, positive nitrites, 2+ leukocytes esterase with 10-20 WBCs. INR 3.4. Plasma lactate was found to be elevated at 1.4 indicating sepsis process. Digoxin 1.42, proBNP 358. CXR revealed central pulmonary vascular congestion. In the severity of her acute illness and sepsis it was felt that patient needed intensive care unit treatment. [facility] [place] so [facility] was contacted and accepted patient for direct admission as there are current ICU bed availability. Patient was seen on arrival to [facility]. She was sleeping. She was on room air without evidence of distress. She has a very thick, moist sounding cough. BP was noted to be in the 120 systolic on arrival. Heart rate in the 90s as she does appear to be in atrial fibrillation, which does not appear to be new. Patient was nonverbal and will not awaken or answer questions during examination. All of history and information is obtained from old records. It does appear patient is a [facility] resident at [facility] . She does have advanced dementia and it is reported that her is her DPOA whom wishes for her to be a do not resuscitate. This morning the patient appears to be resting comfortably. We start examining her however she starts to talk but it's completely not comprehensible. Her is at the bedside. He states this is the way she always is. His only concern if she continues to have a very wet sounding cough. Review of systems is really unobtainable from her as she cannot communicate appropriately due to her dementia. She does follow some commands but not all. Objective Vital signs: Temperature 97.0 F 08/26/17 12:00 Pulse Rate 76 08/26/17 12:00 Respiratory Rate 16 08/26/17 12:00 Blood Pressure 135/73 08/26/17 12:00 Pulse Oximetry 99 08/26/17 12:00 Height/Weight/BMI: Height 1.65 m Weight 77.2 kg Body Mass Index 26.6 Comments: Gen: confused. Not oriented to person, place or time. at bedside states this is baseline. Skin: warm and dry HEENT: NC/AT PERRL, EOMI. Sclera, lids and conjunctiva wnl. MMM, OP clear. Neck: supple. No JVD. Carotids 2+ without bruits Lungs: very coarse wet sounding breath sounds. No wheezes. Upper airway congestion. CV: irregular, No murmur, rub or gallop No edema. Palpable pedal pulses. Abd: Soft, NT/ND. +BS. MS: CARLTON Neuro: CARLTON, Neuro exam is really untestable do to inability to understand directions. She is swallowing okay. Results - Labs CBC & Chem 7: 08/26/17 04:07 08/26/17 04:07 Microbiology Results: Microbiology 08/23/17 17:57 Sputum, Induced Gram Stain - Final 08/23/17 17:57 Sputum, Induced Sputum Culture - Final Assessment and Plan (1) Sepsis Current visit: Yes Status: Acute (2) UTI (urinary tract infection) Current visit: Yes Status: Acute (3) A-fib Current visit: Yes Status: Chronic (4) HTN (hypertension) Current visit: Yes Status: Chronic Assessment and Plan: Assessment and Plan: 1. Sepsis-, tachycardia, leukocytosis, elevated venous lactate, procalcitonin -UTI -Human metapneuomovirus -On vanco and zosyn -repeat procalcitonin in am 2. Encephalopathy -Baseline severe dementia- thinks she is back to baseling -Likely worsened by infection 3. Urinary tract infection -On vanco and zosyn 4. Human metapneumovirus -Resp therapy 5. Permanent Atrial fibrillation-S/P PPM -rates controlled. -Patient on digoxin and Coumadin 6. Right side PNA or aspiration on CXR 08/24/17 -Resp therapy -Vanco and zosyn -Increased pleural effusion today, will dose Lasix times one today 7. Hypertension -blood pressures are well controlled off her home medications of coreg 6.25 mg BID, lisinopril 5 mg daily and imdur 30 mg daily. 8. Type II diabetes -blood sugars appear to be fairly well controlled. 9. Coronary artery disease -difficult to assess but does not appear to be any current pain. -Was not on aspirin at home only the Coumadin. -Was on Ranexa and Imdur as well as coreg for anti-anginal medications at home. -History of 2 stents -her director of operations home health is Dr. Nino Wheeler 10.Parkinson's disease -on Sinemet. 11. Severe Dementia -patient is on Aricept -I did discuss the possibility of comfort care with the . 12. Supratherapeutic INR -received Vit K yesterday, INR now 1.85 -Being managed by pharmacy 13. Hypernatremia -Slightly better this am -DC IVF due to effusion -Will recheck lab in a.m. 14. Chronic Ativan use -Continue 15. Dysphagia -speech did evaluate the patient and recommended pured food and thickened liquids. Recommended crushing meds and applesauce for intake. 16. Prophylaxis -PPI and pt supratherapeutic on coumadin - Physician Narrative Narrative: Date: 08/26/17 Time: 1347 Hospital Course Summary Disclaimer: The visit summary below is not to be considered part of the above Progress Note. Hospital Course: Impression Sepsis-, tachycardia, leukocytosis, suspected infection, elevated venous lactate Urinary tract infection Encephalopathy Cough Atrial fibrillation Hypertension Type II diabetes Coronary artery disease Parkinson's disease Dementia Chronic anticoagulation on warfarin Plan Admit to ICU under the care of Dr. Montgomery for sepsis, encephalopathy Transfer records and laboratory studies reviewed from earlier today. qSOAF score on admission is 2/3- indication high risk of poor outcome related to sepsis/infection As for sepsis protocol, We will repeat venous lactate, pro calcitonin on admission. Blood cultures were obtained at [place] emergency room today. Need to find out if urine culture was obtained- Order placed for nursing staff to call [facility] [place] Obtain viral respiratory panel given significance in coughing Will continue with IV Rocephin and will add IV is azithromycin for further pulmonary coverage. Will recheck a chest x-ray tomorrow morning Consult placed respiratory therapy with NT suction as needed. They were able to obtain a sputum sample, will send this for culture, Gram stain. Will schedule DuoNeb breathing treatments 4 times a day and Pulmicort twice a day. Normal saline at 100 ML per hour for gentle hydration. Will need to monitor for evidence of fluid overload. Monitor on cardiac telemetry, he does have a known history of atrial fibrillation. Will need to monitor for any rapid rates. Speech therapy consultation is placed. Given concern for dysphasia and altered mental status. She may not be able to take oral medications. Recheck CBC, BMP and INR tomorrow morning to follow blood counts, renal function and electrolytes. Consult placed to pharmacy for management of chronic warfarin dosing. INR today was 3.4. Do not resuscitate order was sent with patient, and this order is written upon admission. Discuss further orders and plan of care with attending, Dr. Montgomery. At time of discharge medical care will return to patient's primary care provider in [place], Dr. Emili Whittington 08/23/2017-8:27 PM-I reviewed this chart, the patient history, and the AUTOMOBILE UPHOLSTERER APPRENTICE's/PA 's documented findings as above. We discussed and formulated the assessment and plan as above with the additions below.-Dr. Montgomery The patient was seen this evening in CCU. Currently no family is present, a left to go to supper per her nurse. Per her nurse, family states that the patient is mostly nonverbal. She will occasionally say some words, but they do not make sense. Currently the patient is responsive to voice and touch. She will moan. She does not attempt to speak. I am unable to obtain any history from her, and history is obtained from old records and discussion with ER at [facility]. Currently temperature is 100.4 axillary, blood pressure is 107/57, pulse 86, O2 sat 93%, respiratory rate 25, she is on room air. On exam she is responsive to touch and voice. She is moaning. She appears chronically ill. HEENT reveals eyes to be closed, pupils are equal on exam but it is difficult as she does not assist. Oropharynx is continuously open and mouth is somewhat dry. Chest is clear to auscultation but somewhat difficult to assess due to continuous moaning. Cardiovascular reveals an irregularly irregular rhythm. Abdomen is soft , non-distended with hypoactive bowel sounds. Extremities are free of edema. SCDs are on. Viral respiratory panel is positive for human metapneumo virus Lactate is 2.0 up from 1.4. Pro calcitonin 0.4 Assessment and plan Sepsis-possibly secondary to human that a virus, versus UTI-we'll give Rocephin for possible UTI Azithromycin was added when there was concern for possible pneumonia, but with viral URI on viral respiratory panel, will discontinue azithromycin if there is no pneumonia on chest x-ray tomorrow. Repeat lactate later today. Urine output has decreased and will give a 500 cc normal saline fluid bolus now. Repeat 1 if needed. Will start scheduled rectal Tylenol for pain and fever Will have when necessary Ativan IV available. She is chronically on oral Ativan. Will add IV morphine if needed for pain controlled with Tylenol. The patient apparently has end-stage dementia. Will discuss further plans of care with family. We'll consult speech therapy to see the patient in the morning to see if she is able to swallow. Patient is DO NOT RESUSCITATE per her . Greater than 40 minutes of critical care time spent seeing and evaluating the patient in determining care plan.
[2017-08-26] MEDS ORDERED: FUROSEMIDE 40 MG/4 ML INJECTION IVP ONE (13:56)
[2017-08-26] MEDS: GUAIFENESIN LA 600 MG TABLET PO SCH (21:23)
[2017-08-26] MEDS: DONEPEZIL 10 MG TABLET PO SCH (21:23)
[2017-08-26] MEDS: ATORVASTATIN 20 MG TABLET PO SCH (21:23)
[2017-08-27] MEDS: MORPHINE SULFATE 2mg INJECTION IVP PRN ×2 (01:58→05:52)
[2017-08-27] MEDS: PIPERACILLIN/TAZOBACTAM 3.375 GM in NS 100 ML IV SCH ×4 (03:36→21:55)
[2017-08-27] MEDS: NS FLUSH BAG 500ml IV PRN (03:37)
[2017-08-27] MEDS: PANTOPRAZOLE 40 MG TABLET PO SCH ×2 (06:00→17:03)
[2017-08-27] MEDS: ALBUTEROL/IPRATROPIUM 2.5mg-0.5mg/3ml NEB IPPB SCH ×4 (08:01→19:33)
[2017-08-27] MEDS: ACETAMINOPHEN 650 MG SUPPOSITORY PR SCH ×4 (09:27→22:46)
[2017-08-27] MEDS: GUAIFENESIN LA 600 MG TABLET PO SCH ×2 (09:50→21:20)
[2017-08-27] MEDS: ROPINIROLE 3 MG TABLET PO SCH ×3 (09:50→21:20)
[2017-08-27] MEDS: LORazepam 0.5 MG TABLET PO SCH ×2 (09:50→21:20)
[2017-08-27] MEDS: DIGOXIN 125 MCG TABLET PO SCH (09:50)
[2017-08-27] MEDS: BUSPIRONE 10 MG TABLET PO SCH ×2 (09:50→21:20)
[2017-08-27] MEDS: BUDESONIDE INH.SOLN 0.5mg/2ml NEB IPPB SCH (11:28)
--- NOTE | 2017-08-27 11:49 | Pharmacy Consult-Antibiotics ---
Pharmacy Consult-Vancomycin - Laboratory Information WBC 15.5 T/MM3 (4.5-11.0) H 08/27/17 05:30 BUN 19.0 MG/DL (7-17) H 08/27/17 05:30 Creatinine 0.6 MG/DL (0.7-1.2) L 08/27/17 05:30 Procalcitonin 0.73 NG/ML 08/27/17 05:30 Vancomycin Trough 12.65 UG/ML (15-20) L 08/27/17 10:26 - Consult Information Vancomycin consult: day 5 72 y.o. Female on Vancomycin per pharmacy and Zosyn for coverage of pneumonia/ sepsis. goal Vancomycin trough range= 15 to 20 mcg/ml Will adjust to Vancomycin 1,500 mg IV Q18H. Pharmacy will monitor and adjust as needed. Thank you for the consult, Viri Kraft RP
[2017-08-27] MEDS: SERTRALINE 100 MG TABLET PO SCH (13:02)
--- NOTE | 2017-08-27 13:11 | Pharmacy Consult ---
Pharmacy Consult-Warfarin - Laboratory Information 08/24/17 08/25/17 08/26/17 05:31 05:10 04:07 INR 3.95 H 7.68 H* 1.85 H 08/27/17 10:26 INR 1.57 H - Consult Information We will give oral warfarin when patient is able to take by mouth. We will consult DPOA for further oral treatment. In the mean time we will be using enoxaparin 40mg sq daily. Full enoxaparin dose is 80mg sq q12h for A. Fib. and we will increase dose when direction of care is determined. Thanks
[2017-08-27 14:06] VITALS: BMI 27.8
[2017-08-27] MEDS: ENOXAPARIN 40 MG/0.4 ML INJECTION SQ SCH (14:24)
[2017-08-27] MEDS ORDERED: IOHEXOL 300mg/ml 75ml INJECTION ONE (16:06)
[2017-08-27] MEDS ORDERED: NS 100 ML ONE (16:06)
[2017-08-27] MEDS ORDERED: SALINE FLUSH 10ml SYRINGE ONE (16:06)
--- NOTE | 2017-08-27 19:54 | Progress Note ---
- Date 08/27/17 Subjective: Mrs. Saucedo was seen with her at the bedside. The patient does not respond to questions and he provides all history. He reports that she requires assistance eating and dressing, is nonambulatory and requires a lift to get in and out of bed at baseline. She has not responded to questions for the past 6-8 weeks but mumbles continually. She does not appear to recognize family members any longer and has been on a pured diet for about a month. He reports she typically wakes up which she is not doing now in that she isn't opening her eyes and looking at people and she isn't able to eat because she doesn't wake up. He interprets this as her being more confused. Nursing reports no fevers and continued use of 2 L supplemental oxygen. Objective Vital signs: Temperature 99 F 08/27/17 15:29 Pulse Rate 89 08/27/17 15:29 Respiratory Rate 16 08/27/17 19:34 Blood Pressure 143/71 H 08/27/17 15:29 Pulse Oximetry 96 - 2 L 08/27/17 15:29 I/O 1620/2250 EXAM General-drowsy, does not respond to voice/exam, continually mumbles HEENT-conjunctiva clear, eyes closed and resists opening them to assess pupils Lungs-respirations nonlabored, breath sounds inaudible due to constant mumbling Cardiac-regular rhythm Abd-soft, nontender, diminished bowel sounds Ext-+1 edema bilateral lower extremities, several minor abrasions on the shins bilaterally Psych-minimally responsive as noted - Height/Weight/BMI: Height 1.65 m Weight 75.9 kg Body Mass Index 27.8 Results - Labs CBC & Chem 7: 08/27/17 05:30 08/27/17 05:30 Labs: S86 B1 L9 M4 INR 1.57 Vancomycin trough 12.65 Microbiology Results: Microbiology 08/23/17 17:57 Sputum, Induced Gram Stain -mixed paloma including yeast, many neutrophils 08/23/17 17:57 Sputum, Induced Sputum Culture -not performed - Imaging and Cardiology Chest x-ray Status: image reviewed by me (large right pleural effusion/infiltrate-effusion reported to have increased significantly from prior films) Assessment and Plan (1) Sepsis Current visit: Yes Status: Acute (2) Pneumonia Problem details: Probable aspiration; right mid/lower lung Current visit: Yes Status: Acute Assessment and Plan: Assessment: Sepsis with tachycardia, leukocytosis, lactic acid-2.0 Right-sided pneumonia, possible aspiration Right pleural effusion Human metapneumovirus respiratory infection Acute encephalopathy Advanced dementia UTI (possible, UA positive nitrites, +2 leukocyte esterase, 10-20 WBC) Atrial fibrillation Permanent pacemaker Hypertension Diabetes mellitus, type II CAD, history of stents Coagulopathy due to warfarin Parkinson's disease Dysphasia Hypernatremia-POA Plan: Right pleural effusion/infiltrate-effusion worsening per radiology report yesterday; proceed with CT imaging to better define and determine if thoracentesis is indicated. Persistent leukocytosis and impaired mental status despite antibiotics, cannot exclude empyema at this point. Briefly discussed thoracentesis with the patient's . Will review options following CT. Do not believe the patient is a candidate for chest surgery if empyema were identified. Continue vancomycin/Zosyn. No cultures available-will contact [facility] tomorrow for results of any cultures that may have been obtained there prior to transfer. Suspect recurrent aspiration. Mr. Saucedo describes worsening baseline symptoms for the past 2 months with impaired oral intake and weight loss. He asked about potential for recurrent pneumonias and symptomatic management at the group home in the future. I advised him that I believe she is a candidate for hospice care based on the severity of her symptoms as he described and consult could be initiated if he is interested in additional information. Mental status precludes oral medications, INR is now subtherapeutic-low dose Lovenox initiated. Until decision is made regarding thoracentesis will continue 40 mg daily and then reassess need for long-term anticoagulation. Substitute IV medications where necessary. Heart rate/blood pressure currently controlled-IV metoprolol initiated prn for heart rate greater than 120. Sodium slightly improved after diuresis, continue to monitor. Speech therapy recommended pured diet/thickened liquids however nursing holding meals/oral meds due to depressed mental status. Prognosis poor. DVT Prophylaxis: Lovenox GI Prophylaxis: Protonix Resuscitation Status: Do Not Resuscitate - Time spent with patient Coordination of Care: >50% of visit spent providing counseling/coordination of care (lengthy discussion with patient's ; total time 40-45 minutes.) - Physician Narrative Narrative: Date: 08/27/17 Time: 1950 Hospital Course Summary Disclaimer: The visit summary below is not to be considered part of the above Progress Note. Hospital Course: Impression Sepsis-, tachycardia, leukocytosis, suspected infection, elevated venous lactate Urinary tract infection Encephalopathy Cough Atrial fibrillation Hypertension Type II diabetes Coronary artery disease Parkinson's disease Dementia Chronic anticoagulation on warfarin Plan Admit to ICU under the care of Dr. Montgomery for sepsis, encephalopathy Transfer records and laboratory studies reviewed from earlier today. qSOAF score on admission is 2/3- indication high risk of poor outcome related to sepsis/infection As for sepsis protocol, We will repeat venous lactate, pro calcitonin on admission. Blood cultures were obtained at [place] emergency room today. Need to find out if urine culture was obtained- Order placed for nursing staff to call [facility]. Obtain viral respiratory panel given significance in coughing Will continue with IV Rocephin and will add IV is azithromycin for further pulmonary coverage. Will recheck a chest x-ray tomorrow morning Consult placed respiratory therapy with NT suction as needed. They were able to obtain a sputum sample, will send this for culture, Gram stain. Will schedule DuoNeb breathing treatments 4 times a day and Pulmicort twice a day. Normal saline at 100 ML per hour for gentle hydration. Will need to monitor for evidence of fluid overload. Monitor on cardiac telemetry, he does have a known history of atrial fibrillation. Will need to monitor for any rapid rates. Speech therapy consultation is placed. Given concern for dysphasia and altered mental status. She may not be able to take oral medications. Recheck CBC, BMP and INR tomorrow morning to follow blood counts, renal function and electrolytes. Consult placed to pharmacy for management of chronic warfarin dosing. INR today was 3.4. Do not resuscitate order was sent with patient, and this order is written upon admission. Discuss further orders and plan of care with attending, Dr. Montgomery. At time of discharge medical care will return to patient's primary care provider in [place], Dr. Emili Whittington 08/23/2017-8:27 PM-I reviewed this chart, the patient history, and the AUTHORIZATION MANAGER's/PA 's documented findings as above. We discussed and formulated the assessment and plan as above with the additions below.-Dr. Montgomery The patient was seen this evening in CCU. Currently no family is present, a left to go to supper per her nurse. Per her nurse, family states that the patient is mostly nonverbal. She will occasionally say some words, but they do not make sense. Currently the patient is responsive to voice and touch. She will moan. She does not attempt to speak. I am unable to obtain any history from her, and history is obtained from old records and discussion with ER at [facility]. Currently temperature is 100.4 axillary, blood pressure is 107/57, pulse 86, O2 sat 93%, respiratory rate 25, she is on room air. On exam she is responsive to touch and voice. She is moaning. She appears chronically ill. HEENT reveals eyes to be closed, pupils are equal on exam but it is difficult as she does not assist. Oropharynx is continuously open and mouth is somewhat dry. Chest is clear to auscultation but somewhat difficult to assess due to continuous moaning. Cardiovascular reveals an irregularly irregular rhythm. Abdomen is soft , non-distended with hypoactive bowel sounds. Extremities are free of edema. SCDs are on. Viral respiratory panel is positive for human metapneumo virus Lactate is 2.0 up from 1.4. Pro calcitonin 0.4 Assessment and plan Sepsis-possibly secondary to human that a virus, versus UTI-we'll give Rocephin for possible UTI Azithromycin was added when there was concern for possible pneumonia, but with viral URI on viral respiratory panel, will discontinue azithromycin if there is no pneumonia on chest x-ray tomorrow. Repeat lactate later today. Urine output has decreased and will give a 500 cc normal saline fluid bolus now. Repeat 1 if needed. Will start scheduled rectal Tylenol for pain and fever Will have when necessary Ativan IV available. She is chronically on oral Ativan. Will add IV morphine if needed for pain controlled with Tylenol. The patient apparently has end-stage dementia. Will discuss further plans of care with family. We'll consult speech therapy to see the patient in the morning to see if she is able to swallow. Patient is DO NOT RESUSCITATE per her . Greater than 40 minutes of critical care time spent seeing and evaluating the patient in determining care plan. 08/27/17 Chest x-ray worsened yesterday with increased infiltrate/effusion-plan CT to better define; thoracentesis briefly discussed with the patient's . Probable aspiration pneumonia Minimally responsive, unable to take oral medications. asking about comfort care/do not hospitalize option for future. Sodium improved somewhat following diuresis yesterday, continue.
[2017-08-27] MEDS ORDERED: METOPROLOL 5mg/5ml INJECTION IVP PRN (20:14)
[2017-08-27] MEDS ORDERED: FUROSEMIDE 20 MG/2 ML INJECTION IVP ONE (20:17)
[2017-08-27] MEDS: DONEPEZIL 10 MG TABLET PO SCH (21:20)
[2017-08-27] MEDS: ATORVASTATIN 20 MG TABLET PO SCH (21:20)
[2017-08-28] MEDS: BUDESONIDE INH.SOLN 0.5mg/2ml NEB IPPB SCH ×3 (02:41→19:33)
[2017-08-28] MEDS: NS FLUSH BAG 500ml IV PRN (03:31)
[2017-08-28] MEDS: PIPERACILLIN/TAZOBACTAM 3.375 GM in NS 100 ML IV SCH ×4 (03:31→20:58)
[2017-08-28] MEDS: ALBUTEROL/IPRATROPIUM 2.5mg-0.5mg/3ml NEB IPPB SCH ×4 (07:19→19:32)
--- NOTE | 2017-08-28 08:48 | CT Scan Report ---
Indication: PNA with pleural effusion PROCEDURE: CT chest w con: Encounter: Initial Comparison: Chest x-ray dated August 26, 2017 Technique: Axial CT images were performed through the chest after the administration of intravenous contrast. Coronal and sagittal two-dimensional reformats. Automated Exposure Control and Iterative Reconstruction dose reducing techniques were utilized. Contrast: Omnipaque 300 74 mL Findings: Large right pleural effusion appears multiloculated with compressive atelectasis of the majority of the right lung. Small left effusion with minimal dependent atelectasis. No pneumothorax. Markedly dilated patulous esophagus. There is significant mucous or debris in the right lower lobe bronchi which are mostly opacified. There is no enhancement of the pleura to suggest an empyema. There is right paratracheal adenopathy present along with an enlarged subcarinal node. Heart size is normal. Small pericardial effusion. The upper abdomen shows a multiseptated right renal lesion measuring 3.7 cm in diameter with evidence of dense septations or possible internal enhancement. Degenerative change and scoliosis in the spine. Impression: 1. Right-sided severe pneumonia or aspiration with a parapneumonic effusion. Significant amount of endobronchial debris or fluid. Bronchoscopy may be helpful for further evaluation. Neoplastic etiology cannot be excluded and diagnostic/therapeutic thoracentesis may be helpful. No definite CT evidence to suggest empyema. 2. Mediastinal adenopathy could be reactive to acute infection/inflammation or metastatic. 3. Complex right renal lesion. Recommend comparison with any available prior CT exams to evaluate the stability of this finding. If comparisons are unavailable, follow-up options include renal mass protocol CT or contrast enhanced abdominal MRI. .
[2017-08-28] MEDS: ACETAMINOPHEN 650 MG SUPPOSITORY PR SCH ×3 (09:56→18:20)
[2017-08-28] MEDS: ROPINIROLE 3 MG TABLET PO SCH ×3 (10:05→20:22)
[2017-08-28] MEDS: PANTOPRAZOLE 40 MG INJECTION IVP SCH (10:05)
[2017-08-28] MEDS: DIGOXIN 125 MCG TABLET PO SCH (10:06)
[2017-08-28] MEDS: GUAIFENESIN LA 600 MG TABLET PO SCH ×2 (10:07→20:21)
[2017-08-28] MEDS: LORazepam 0.5 MG TABLET PO SCH ×2 (10:14→20:26)
[2017-08-28] MEDS: BUSPIRONE 10 MG TABLET PO SCH ×2 (10:14→20:21)
[2017-08-28] MEDS: ENOXAPARIN 40 MG/0.4 ML INJECTION SQ SCH (10:24)
--- NOTE | 2017-08-28 11:19 | Pharmacy Consult ---
Pharmacy Consult-Warfarin - Laboratory Information 08/24/17 08/25/17 08/26/17 05:31 05:10 04:07 INR 3.95 H 7.68 H* 1.85 H 08/27/17 08/28/17 10:26 04:20 INR 1.57 H 1.67 H - Consult Information Warfarin Consult: 72 yr old female who was admitted for sepsis and pneumonia. The patient has a history of chronic AFib, CAD and CVA. The patient's home med dose of warfarin is 2.5 mg daily. Date INR 08/23/17 3.40 (Hold dose) 08/24/17 3.95 (Hold dose) 08/25/17 7.68 (Vit K 2 mg po given) 08/26/17 1.85 (No dose patient unable to swallow meds) 08/27/17 1.57 (No dose patient unable to swallow meds) Patient put on bridge dose of Enoxaparin 40 mg SQ daily. 08/28/17 1.67 Patient now able to swallow meds. Give 2.0 mg Warfarin today Patient is currently on antibiotics Zosyn 3.375 mg IV q6hrs which has a drug interaction with Warfarin increasing the INR. Thank you. Kate Bishop, PharmD
[2017-08-28] MEDS ORDERED: WARFARIN 2 MG TABLET PO SCH (12:00)
[2017-08-28] MEDS: SERTRALINE 100 MG TABLET PO SCH (12:38)
[2017-08-28] MEDS ORDERED: DEXAMETHASONE 1 MG TABLET PO SCH (15:15)
[2017-08-28] MEDS ORDERED: FOSFOMYCIN 3 GRAM PACKET PO ONE (16:00)
[2017-08-28] MEDS: POTASSIUM CHLORIDE 40 MEQ in D5W 1,000 ML IV SCH (16:29)
[2017-08-28] MEDS: ACETAMINOPHEN 650 MG/20.3 ML SOLUTION PO SCH (20:19)
[2017-08-28] MEDS: ATORVASTATIN 20 MG TABLET PO SCH (20:20)
[2017-08-28] MEDS: DONEPEZIL 10 MG TABLET PO SCH (20:21)
--- NOTE | 2017-08-28 23:19 | Progress Note ---
- Date 08/28/17 Subjective: Patient seen with her bedside earlier today. Mr. Saucedo felt his was somewhat more alert today reporting that she opened her eyes and may have recognized him. She was able to take some bites of pured foods and some medications were given crushed in pudding. Nursing reported that giving medications was laborious but was done. Mr. Saucedo doesn't think her breathing is quite as labored as it was previously. Patient remains nonresponsive to voice or exam and mumbles randomly without content. No fever reported. Objective Vital signs: Temperature 96.9 F 08/28/17 20:00 Pulse Rate 70 08/28/17 20:00 Respiratory Rate 16 08/28/17 20:00 Blood Pressure 137/75 08/28/17 20:00 Pulse Oximetry 97 08/28/17 20:00 NAD, resting comfortably, eyes closed Mumbles nearly constantly-speech cannot be understood, seems to repeat a phrase over and over Respirations are nonlabored, decreased air flow especially on the right side, left upper lung field relatively clear although inspiratory effort is poor Slightly irregular cardiac rhythm (mumbled speech obscures good interpretation of rhythm) S1 and S2 Abdomen is soft, nontender, bowel sounds active today Trace bilateral pretibial edema, small eschars/wounds along shins Height/Weight/BMI: Height 1.65 m Weight 73.7 kg Body Mass Index 27.8 Results - Labs CBC & Chem 7: 08/28/17 04:20 08/28/17 04:20 Labs: S92 L4 M4 CRP 165.2 Microbiology Results: Microbiology 08/23/17 17:57 Sputum, Induced Gram Stain - Final 08/23/17 17:57 Sputum, Induced Sputum Culture -not performed Urine culture from [facility] multidrug resistant Escherichia coli ( greater than 100,000 colonies) sensitive to fosfomycin, gentamicin, meropenem, nitrofurantoin, Bactrim 1 blood culture drawn at [facility]-negative through most recent report. - Imaging and Cardiology CT scan - chest Status: image reviewed by me Additional comments: Extensive right-sided multiloculated pleural effusion with compressive atelectasis/infiltrate, debris in the airway; right renal mass incidentally noted. Assessment and Plan (1) Sepsis Current visit: Yes Status: Acute (2) Pneumonia Problem details: Probable aspiration; right mid/lower lung Current visit: Yes Status: Acute Assessment and Plan: Assessment: Sepsis with tachycardia, leukocytosis, lactic acid-2.0 Right-sided pneumonia, possible aspiration Right pleural effusion Human metapneumovirus respiratory infection Acute encephalopathy Advanced dementia DRL-qlchiyjrv-fftigxwue Escherichia coli (culture at [facility]) Right renal mass Atrial fibrillation-chronic Permanent pacemaker Hypertension Diabetes mellitus, type II CAD, history of stents Coagulopathy due to warfarin Parkinson's disease Dysphasia Hypernatremia-POA Hypokalemia Plan: Right pleural effusion/infiltrate-multiloculated effusion on CT, CRP significantly elevated. CT reviewed with the patient's . We had a lengthy discussion regarding possible thoracentesis for diagnostic purposes but I also advised him that if there is evidence of infection in the pleural fluid treatment will be problematic in that I don't believe she is a candidate for thoracotomy. Pulmonary consultation offered; he wishes discuss further with family but is considering thoracentesis for additional information and in the event that it would allow his to breathe more comfortably. Hold Lovenox in a.m. pending decision. Warfarin on hold. Continue vancomycin/Zosyn. We additionally discussed recurrent aspiration in the setting of advanced dementia, feeding tube option and whether the patient had previously discussed her wishes with him when she was able to do so. Given her advanced disease I recommended against feeding tube. Hospice consultation again discussed and I frankly advised the patient that I believe his is dying and that treatment can prolong but not prevent her . Fosfomycin given for Escherichia coli UTI today. Recurrent hypernatremia with hypokalemia; D5 with potassium initiated to address electrolytes. Renal function has normalized-will not re-dose diuretics today. Complex right renal mass identified by CT, discussed with the patient's - I advised him I don't believe she is a candidate for surgery and thus do not recommend consideration of biopsy. Blood pressure stable-reassess tomorrow. At present have not resumed oral beta mahin. Pured diet resume today. Prognosis poor. - Time spent with patient Time with patient PN: other (40 minutes) Coordination of Care: >50% of visit spent providing counseling/coordination of care - Physician Narrative Narrative: Date: 08/28/17 Time: 2318 Hospital Course Summary Disclaimer: The visit summary below is not to be considered part of the above Progress Note. Hospital Course: Impression Sepsis-, tachycardia, leukocytosis, suspected infection, elevated venous lactate Urinary tract infection Encephalopathy Cough Atrial fibrillation Hypertension Type II diabetes Coronary artery disease Parkinson's disease Dementia Chronic anticoagulation on warfarin Plan Admit to ICU under the care of Dr. Montgomery for sepsis, encephalopathy Transfer records and laboratory studies reviewed from earlier today. qSOAF score on admission is 2/3- indication high risk of poor outcome related to sepsis/infection As for sepsis protocol, We will repeat venous lactate, pro calcitonin on admission. Blood cultures were obtained at [place] emergency room today. Need to find out if urine culture was obtained- Order placed for nursing staff to call [facility] ER. Obtain viral respiratory panel given significance in coughing Will continue with IV Rocephin and will add IV is azithromycin for further pulmonary coverage. Will recheck a chest x-ray tomorrow morning Consult placed respiratory therapy with NT suction as needed. They were able to obtain a sputum sample, will send this for culture, Gram stain. Will schedule DuoNeb breathing treatments 4 times a day and Pulmicort twice a day. Normal saline at 100 ML per hour for gentle hydration. Will need to monitor for evidence of fluid overload. Monitor on cardiac telemetry, he does have a known history of atrial fibrillation. Will need to monitor for any rapid rates. Speech therapy consultation is placed. Given concern for dysphasia and altered mental status. She may not be able to take oral medications. Recheck CBC, BMP and INR tomorrow morning to follow blood counts, renal function and electrolytes. Consult placed to pharmacy for management of chronic warfarin dosing. INR today was 3.4. Do not resuscitate order was sent with patient, and this order is written upon admission. Discuss further orders and plan of care with attending, Dr. Montgomery. At time of discharge medical care will return to patient's primary care provider in [place], Dr. Emili Whittington 08/23/2017-8:27 PM-I reviewed this chart, the patient history, and the CLIMATOLOGY PROFESSOR's/PA 's documented findings as above. We discussed and formulated the assessment and plan as above with the additions below.-Dr. Montgomery The patient was seen this evening in CCU. Currently no family is present, a left to go to supper per her nurse. Per her nurse, family states that the patient is mostly nonverbal. She will occasionally say some words, but they do not make sense. Currently the patient is responsive to voice and touch. She will moan. She does not attempt to speak. I am unable to obtain any history from her, and history is obtained from old records and discussion with ER at [facility]. Currently temperature is 100.4 axillary, blood pressure is 107/57, pulse 86, O2 sat 93%, respiratory rate 25, she is on room air. On exam she is responsive to touch and voice. She is moaning. She appears chronically ill. HEENT reveals eyes to be closed, pupils are equal on exam but it is difficult as she does not assist. Oropharynx is continuously open and mouth is somewhat dry. Chest is clear to auscultation but somewhat difficult to assess due to continuous moaning. Cardiovascular reveals an irregularly irregular rhythm. Abdomen is soft , non-distended with hypoactive bowel sounds. Extremities are free of edema. SCDs are on. Viral respiratory panel is positive for human metapneumo virus Lactate is 2.0 up from 1.4. Pro calcitonin 0.4 Assessment and plan Sepsis-possibly secondary to human that a virus, versus UTI-we'll give Rocephin for possible UTI Azithromycin was added when there was concern for possible pneumonia, but with viral URI on viral respiratory panel, will discontinue azithromycin if there is no pneumonia on chest x-ray tomorrow. Repeat lactate later today. Urine output has decreased and will give a 500 cc normal saline fluid bolus now. Repeat 1 if needed. Will start scheduled rectal Tylenol for pain and fever Will have when necessary Ativan IV available. She is chronically on oral Ativan. Will add IV morphine if needed for pain controlled with Tylenol. The patient apparently has end-stage dementia. Will discuss further plans of care with family. We'll consult speech therapy to see the patient in the morning to see if she is able to swallow. Patient is DO NOT RESUSCITATE per her . Greater than 40 minutes of critical care time spent seeing and evaluating the patient in determining care plan. 08/27/17 Chest x-ray worsened yesterday with increased infiltrate/effusion-plan CT to better define; thoracentesis briefly discussed with the patient's . Probable aspiration pneumonia Minimally responsive, unable to take oral medications. asking about comfort care/do not hospitalize option for future. Sodium improved somewhat following diuresis yesterday, continue. 08/28/17 Right pleural effusion/infiltrate-multiloculated effusion on CT, CRP significantly elevated. CT reviewed with the patient's . We had a lengthy discussion regarding possible thoracentesis for diagnostic purposes but I also advised him that if there is evidence of infection in the pleural fluid treatment will be problematic in that I don't believe she is a candidate for thoracotomy. Pulmonary consultation offered; he wishes discuss further with family but is considering thoracentesis for additional information and in the event that it would allow his to breathe more comfortably. Hold Lovenox in a.m. pending decision. Warfarin on hold. Continue vancomycin/Zosyn. We additionally discussed recurrent aspiration in the setting of advanced dementia, feeding tube option and whether the patient had previously discussed her wishes with him when she was able to do so. Given her advanced disease I recommended against feeding tube. Hospice consultation again discussed and I frankly advised the patient that I believe his is dying and that treatment can prolong but not prevent her . Complex right renal mass incidentally identified by CT, discussed with - advised him that I don't believe the patient is a candidate for surgery and subsequently biopsy is not indicated. Fosfomycin given for Escherichia coli UTI today. Recurrent hypernatremia with hypokalemia; D5 with potassium initiated to address electrolytes. Renal function has normalized-will not re-dose diuretics today.
[2017-08-29] MEDS: PIPERACILLIN/TAZOBACTAM 3.375 GM in NS 100 ML IV SCH ×4 (03:25→20:30)
[2017-08-29] MEDS: ALBUTEROL/IPRATROPIUM 2.5mg-0.5mg/3ml NEB IPPB SCH ×4 (07:19→19:29)
[2017-08-29] MEDS: BUDESONIDE INH.SOLN 0.5mg/2ml NEB IPPB SCH ×2 (07:19→19:30)
[2017-08-29] MEDS: PANTOPRAZOLE 40 MG INJECTION IVP SCH (09:42)
[2017-08-29] MEDS: DIGOXIN 125 MCG TABLET PO SCH (09:42)
[2017-08-29] MEDS: LORazepam 0.5 MG TABLET PO SCH ×2 (09:42→20:32)
[2017-08-29] MEDS: ACETAMINOPHEN 650 MG/20.3 ML SOLUTION PO SCH ×4 (09:42→20:32)
[2017-08-29] MEDS: BUSPIRONE 10 MG TABLET PO SCH ×2 (09:44→20:32)
[2017-08-29] MEDS: GUAIFENESIN LA 600 MG TABLET PO SCH ×2 (09:44→20:32)
[2017-08-29] MEDS: ROPINIROLE 3 MG TABLET PO SCH ×3 (10:28→20:32)
[2017-08-29] MEDS: POTASSIUM CHLORIDE 40 MEQ in D5W 1,000 ML IV SCH (10:31)
[2017-08-29] MEDS: SERTRALINE 100 MG TABLET PO SCH (12:56)
[2017-08-29] MEDS: D5W 1,000 ML IV SCH (15:16)
--- NOTE | 2017-08-29 16:35 | Progress Note ---
- Date 08/29/17 Subjective: Mrs. Saucedo was reported to be more arousable this morning and persisted IPPB treatment slapping at the RT when treatment was administered. When I visited with the patient she opened her eyes and asked me how I was. She went on to tell me she was pleased to meet me. She denied dyspnea and reported that it hurts to breathe "now and then" and that she has nausea "now and then". She cannot tell me how many children she had her where she was but she was pleasant. She mumbled for a period of time but was able to cooperate with examination. No fever was reported and she denied pain. Her noted that she has been more interactive today but was surprised at how much she spoke at the time of my visit. He's decided against thoracentesis and has scheduled an informative visit with hospice for later today. Objective Vital signs: Temperature 98.6 F 08/29/17 15:48 Pulse Rate 83 08/29/17 15:48 Respiratory Rate 20 08/29/17 15:48 Blood Pressure 141/71 H 08/29/17 15:48 Pulse Oximetry 99 08/29/17 15:48 I/O 2011/560 NAD, some speech easily understood today while other is mumbled and nonsensical Conjunctiva clear, conjugate gaze, sclera anicteric, oropharynx clear and membranes moist Respirations nonlabored, anterior breath sounds on the left are very diminished and slightly coarse, left breath sounds relatively clear, no wheezing present Cardiac rhythm slightly irregular, S1-S2 Abdomen soft, nontender, bowel sounds present Trace edema bilateral lower extremities Moving upper extremities spontaneously Height/Weight/BMI: Height 1.65 m Weight 77.2 kg Body Mass Index 27.8 Results - Labs CBC & Chem 7: 08/29/17 04:05 08/29/17 04:05 Labs: S91 L6 M3 INR 2.03 Glucose 231-191 Microbiology Results: Microbiology 08/23/17 17:57 Sputum, Induced Gram Stain - Final 08/23/17 17:57 Sputum, Induced Sputum Culture - Final Assessment and Plan (1) Sepsis Current visit: Yes Status: Acute (2) Pneumonia Problem details: Probable aspiration; right mid/lower lung Current visit: Yes Status: Acute Assessment and Plan: Assessment: Sepsis with tachycardia, leukocytosis, lactic acid-2.0 Right-sided pneumonia, possible aspiration Right pleural effusion Human metapneumovirus respiratory infection Acute encephalopathy Advanced dementia AWT-ycljpyimc-tqabhlsot Escherichia coli (culture at [facility]) Right renal mass Atrial fibrillation-chronic Permanent pacemaker Hypertension Diabetes mellitus, type II CAD, history of stents Coagulopathy due to warfarin Parkinson's disease Dysphasia Hypernatremia-POA Hypokalemia Plan: Patient's [id number] called me earlier today to review CT findings and prognosis indicating that she felt the patient's was a little overwhelmed and may not be tracking or discussions well. She additionally reported that the patient has had escalating numbers of hospitalizations in [place] and recent months and her quality of life has deteriorated substantially over the past 2 months. I advised her that based on brief conversation with Mr. Saucedo this morning we've decided against thoracentesis and that he will be meeting with hospice representatives later today for information. Clinically patient is improving, has completed 1 week antibiotics for pneumonia and UTI was treated yesterday with fosfomycin. Discontinue vancomycin, continue Zosyn pending family decision regarding hospice. Potassium is normalized but hypernatremia persists, continue D5W without supplemental potassium. Do not anticipate further workup regarding right renal mass. Blood pressure slightly elevated, beta mahin remains on hold at this time. Continue to monitor. Pured diet; oral medications as tolerates. Prognosis poor. - Physician Narrative Narrative: Date: 08/29/17 Time: 1631 Hospital Course Summary Disclaimer: The visit summary below is not to be considered part of the above Progress Note. Hospital Course: Impression Sepsis-, tachycardia, leukocytosis, suspected infection, elevated venous lactate Urinary tract infection Encephalopathy Cough Atrial fibrillation Hypertension Type II diabetes Coronary artery disease Parkinson's disease Dementia Chronic anticoagulation on warfarin Plan Admit to ICU under the care of Dr. Montgomery for sepsis, encephalopathy Transfer records and laboratory studies reviewed from earlier today. qSOAF score on admission is 2/3- indication high risk of poor outcome related to sepsis/infection As for sepsis protocol, We will repeat venous lactate, pro calcitonin on admission. Blood cultures were obtained at [place] emergency room today. Need to find out if urine culture was obtained- Order placed for nursing staff to call [facility] ER. Obtain viral respiratory panel given significance in coughing Will continue with IV Rocephin and will add IV is azithromycin for further pulmonary coverage. Will recheck a chest x-ray tomorrow morning Consult placed respiratory therapy with NT suction as needed. They were able to obtain a sputum sample, will send this for culture, Gram stain. Will schedule DuoNeb breathing treatments 4 times a day and Pulmicort twice a day. Normal saline at 100 ML per hour for gentle hydration. Will need to monitor for evidence of fluid overload. Monitor on cardiac telemetry, he does have a known history of atrial fibrillation. Will need to monitor for any rapid rates. Speech therapy consultation is placed. Given concern for dysphasia and altered mental status. She may not be able to take oral medications. Recheck CBC, BMP and INR tomorrow morning to follow blood counts, renal function and electrolytes. Consult placed to pharmacy for management of chronic warfarin dosing. INR today was 3.4. Do not resuscitate order was sent with patient, and this order is written upon admission. Discuss further orders and plan of care with attending, Dr. Montgomery. At time of discharge medical care will return to patient's primary care provider in [place], Dr. Emili Whittington 08/23/2017-8:27 PM-I reviewed this chart, the patient history, and the ASSOCIATE DIRECTOR QA's/PA 's documented findings as above. We discussed and formulated the assessment and plan as above with the additions below.-Dr. Montgomery The patient was seen this evening in CCU. Currently no family is present, a left to go to supper per her nurse. Per her nurse, family states that the patient is mostly nonverbal. She will occasionally say some words, but they do not make sense. Currently the patient is responsive to voice and touch. She will moan. She does not attempt to speak. I am unable to obtain any history from her, and history is obtained from old records and discussion with ER DrNino at [facility]. Currently temperature is 100.4 axillary, blood pressure is 107/57, pulse 86, O2 sat 93%, respiratory rate 25, she is on room air. On exam she is responsive to touch and voice. She is moaning. She appears chronically ill. HEENT reveals eyes to be closed, pupils are equal on exam but it is difficult as she does not assist. Oropharynx is continuously open and mouth is somewhat dry. Chest is clear to auscultation but somewhat difficult to assess due to continuous moaning. Cardiovascular reveals an irregularly irregular rhythm. Abdomen is soft , non-distended with hypoactive bowel sounds. Extremities are free of edema. SCDs are on. Viral respiratory panel is positive for human metapneumo virus Lactate is 2.0 up from 1.4. Pro calcitonin 0.4 Assessment and plan Sepsis-possibly secondary to human that a virus, versus UTI-we'll give Rocephin for possible UTI Azithromycin was added when there was concern for possible pneumonia, but with viral URI on viral respiratory panel, will discontinue azithromycin if there is no pneumonia on chest x-ray tomorrow. Repeat lactate later today. Urine output has decreased and will give a 500 cc normal saline fluid bolus now. Repeat 1 if needed. Will start scheduled rectal Tylenol for pain and fever Will have when necessary Ativan IV available. She is chronically on oral Ativan. Will add IV morphine if needed for pain controlled with Tylenol. The patient apparently has end-stage dementia. Will discuss further plans of care with family. We'll consult speech therapy to see the patient in the morning to see if she is able to swallow. Patient is DO NOT RESUSCITATE per her . Greater than 40 minutes of critical care time spent seeing and evaluating the patient in determining care plan. 08/27/17 Chest x-ray worsened yesterday with increased infiltrate/effusion-plan CT to better define; thoracentesis briefly discussed with the patient's . Probable aspiration pneumonia Minimally responsive, unable to take oral medications. asking about comfort care/do not hospitalize option for future. Sodium improved somewhat following diuresis yesterday, continue. 08/28/17 Right pleural effusion/infiltrate-multiloculated effusion on CT, CRP significantly elevated. CT reviewed with the patient's . We had a lengthy discussion regarding possible thoracentesis for diagnostic purposes but I also advised him that if there is evidence of infection in the pleural fluid treatment will be problematic in that I don't believe she is a candidate for thoracotomy. Pulmonary consultation offered; he wishes discuss further with family but is considering thoracentesis for additional information and in the event that it would allow his to breathe more comfortably. Hold Lovenox in a.m. pending decision. Warfarin on hold. Continue vancomycin/Zosyn. We additionally discussed recurrent aspiration in the setting of advanced dementia, feeding tube option and whether the patient had previously discussed her wishes with him when she was able to do so. Given her advanced disease I recommended against feeding tube. Hospice consultation again discussed and I frankly advised the patient that I believe his is dying and that treatment can prolong but not prevent her . Complex right renal mass incidentally identified by CT, discussed with - advised him that I don't believe the patient is a candidate for surgery and subsequently biopsy is not indicated. Fosfomycin given for Escherichia coli UTI today. Recurrent hypernatremia with hypokalemia; D5 with potassium initiated to address electrolytes. Renal function has normalized-will not re-dose diuretics today. 08/29/17 Patient's [id number]-ums called me earlier today to review CT findings and prognosis indicating that she felt the patient's was a little overwhelmed and may not be tracking or discussions well. She additionally reported that the patient has had escalating numbers of hospitalizations in [place] and recent months and her quality of life has deteriorated substantially over the past 2 months. I advised her that based on brief conversation with Mr. Saucedo this morning we've decided against thoracentesis and that he will be meeting with hospice representatives later today for information. Clinically patient is improving, has completed 1 week antibiotics for pneumonia and UTI was treated yesterday with fosfomycin. Discontinue vancomycin, continue Zosyn pending family decision regarding hospice. Potassium is normalized but hypernatremia persists, continue D5W without supplemental potassium.
[2017-08-29] MEDS: DONEPEZIL 10 MG TABLET PO SCH (20:32)
[2017-08-29] MEDS: ATORVASTATIN 20 MG TABLET PO SCH (20:32)
[2017-08-30] MEDS: PIPERACILLIN/TAZOBACTAM 3.375 GM in NS 100 ML IV SCH ×2 (03:18→11:45)
[2017-08-30 03:46] VITALS: RESP 20
[2017-08-30] MEDS: D5W 1,000 ML IV SCH (06:41)
[2017-08-30] MEDS: BUDESONIDE INH.SOLN 0.5mg/2ml NEB IPPB SCH (09:40)
[2017-08-30] MEDS: ALBUTEROL/IPRATROPIUM 2.5mg-0.5mg/3ml NEB IPPB SCH ×3 (09:40→16:12)
[2017-08-30] MEDS: ACETAMINOPHEN 650 MG/20.3 ML SOLUTION PO SCH ×2 (10:43→15:11)
[2017-08-30] MEDS: GUAIFENESIN LA 600 MG TABLET PO SCH (11:45)
[2017-08-30] MEDS: BUSPIRONE 10 MG TABLET PO SCH (11:45)
[2017-08-30] MEDS: DIGOXIN 125 MCG TABLET PO SCH (11:45)
[2017-08-30] MEDS: ROPINIROLE 3 MG TABLET PO SCH ×2 (11:47→15:12)
[2017-08-30] MEDS: LORazepam 0.5 MG TABLET PO SCH (11:48)
[2017-08-30 12:09] VITALS: BP 152/67; PULSE 87; TEMP 99; O2SAT 97
[2017-08-30] MEDS: SERTRALINE 100 MG TABLET PO SCH (13:22)
--- NOTE | 2017-08-30 14:01 | Extended Care Facility Orders ---
Admission Orders Admit to:: ICF, Hospice Allergies/Adverse Reactions: Allergies latex Allergy (Intermediate, Verified 08/23/17 17:42) Rash Admitting Diagnosis: sepsis,pneumonia Admitting Physician: Angi Rubio MD Attending Physician: Angi Rubio MD Code Status: Do Not Resuscitate Anticiapted Length of Stay: 30 days or less Rehab Potential: poor Rehab Prognosis: poor Diet: Pured, thickened liquids May use Facility Protocol or Standing Orders: Yes Evaluations/Treatment: Speech Detention Certification: I certify that SNF services are required to be given on an Inpatient basis because of the patients need for retirement care on a continuing basis for the condition(s) for which he/she received inpatient hospital services prior to his/her transfer to the SNF. SNF inpatient care is necessary for the following reasons Not applicable - Additional Information In Event of Arrest: Do Not Start CPR Resident is Aware of Diagnosis: No ([place] dementia) Referrals: Emili Whittington DO [Physician] - (at [facility]) Additional Orders: Accu-Cheks fasting and two-hour after meals; insulins on hold due to poor oral intake-may require corrective scale insulin. [facility] will assist with management-family has signed on for hospice care during hospitalization. May require low flow supplemental oxygen for large right pleural effusion associated with aspiration pneumonia. Treated for multidrug resistant Escherichia coli UTI with fosfomycin on 08/28/17.
--- NOTE | 2017-08-30 14:05 | Discharge Summary ---
Discharge Information Date of admission: 08/23/17 16:45 Anticipated date of discharge: 08/30/17 Attending Physician: Angi Rubio MD Primary care physician: MD Emili Kemp MD Consults: - Discharge Diagnosis (1) Sepsis Status: Acute Sepsis with tachycardia, leukocytosis, lactic acidosis Aspiration pneumonia Right pleural effusion, multiloculated Human metapneumovirus respiratory infection Acute encephalopathy Advanced dementia [id number] Escherichia coli (culture at [facility] [place]) Right renal mass Atrial fibrillation-chronic Permanent pacemaker Hypertension Diabetes mellitus, type II CAD, history of stents Coagulopathy due to warfarin Parkinson's disease Dysphasia Hypernatremia-POA Hypokalemia - Laboratory Labs: On admission 08/23 lactic acid was 2.0 and procalcitonin 0.4 although procal wan to 2.11 the following day. Respiratory viral panel positive for human Metapneumovirus by PCR. Remainder of admission labs were performed by transferring facility. On 08/24 white count 16.6 with 93% neutrophils, hemoglobin 12.0, INR 3.95, sodium 150, potassium 3.5, creatinine 0.7 CRP 165.2 mg/L with normal range 0-9 on 08/28/17; bilirubin 1.0, AST 107, ALT 28 , alkaline phosphatase 191 on 08/26. 08/30/17 04:54 08/30/17 04:54 - Microbiology 08/23/17 17:57 Sputum, Induced Gram Stain -mixed bacterial paloma including yeast, many neutrophils 08/23/17 17:57 Sputum, Induced Sputum Culture -not performed - Radiology Radiology: Chest x-ray on 08/24/17 demonstrated right-sided pneumonia and degenerative changes in the right shoulder, left shoulder replacement. Follow-up film on 08/26 demonstrated marked interval worsening in pleural effusion on the right with severe consolidation of the right lung. CT of the chest with contrast on 08/28/17: Large right pleural effusion appears multiloculated with compressive atelectasis of the majority of the right lung. Small left effusion with minimal dependent atelectasis. No pneumothorax. Markedly dilated patulous esophagus. There is significant mucous or debris in the right lower lobe bronchi which are mostly opacified. There is no enhancement of the pleura to suggest an empyema. There is right paratracheal adenopathy present along with an enlarged subcarinal node. Heart size is normal. Small pericardial effusion. The upper abdomen shows a multiseptated right renal lesion measuring 3.7 cm in diameter with evidence of dense septations or possible internal enhancement. Degenerative change and scoliosis in the spine. Impression: 1. Right-sided severe pneumonia or aspiration with a parapneumonic effusion. Significant amount of endobronchial debris or fluid. Bronchoscopy may be helpful for further evaluation. Neoplastic etiology cannot be excluded and diagnostic/therapeutic thoracentesis may be helpful. No definite CT evidence to suggest empyema. 2. Mediastinal adenopathy could be reactive to acute infection/inflammation or metastatic. 3. Complex right renal lesion. Recommend comparison with any available prior CT exams to evaluate the stability of this finding. If comparisons are unavailable, follow-up options include renal mass protocol CT or contrast enhanced abdominal MRI. History of Present Illness HPI: Viridiana is a 72-year-old female was evaluated acutely today at [facility] emergency room for altered mentation. Initially she was found to be hypotensive with a systolic blood pressure of 76. Further workup was completed in the emergency room. Patient was found to have an elevated white count of 17.6 , hemoglobin 13.2, hematocrit 38 him a platelet count 182. Sodium 142, potassium 4.5, BUN 34, creatinine 1.2, CRP 21, troponin undetectable. Her analysis was obtained showing trace blood, trace ketones, 1+ protein, positive nitrites, 2+ leukocytes esterase with 10-20 WBCs. INR 3.4. Plasma lactate was found to be elevated at 1.4 indicating sepsis process. Digoxin 1.42, proBNP 358. CXR reveled central pulmonary vascular congestion. In the severity of her acute illness, sepsis process was felt that patient needed intensive care unit treatment. [facility] was contacted by [facility] and accepted patient for direct admission as there are current ICU bed availability. Patient is seen on arrival to [facility]. She is sleeping. She is currently on room air without evidence of distress. She does have a very thick, moist sounding cough. BP Is noted to be in the 120 systolic on arrival. Heart rate in the 90s as she does appear to be in atrial fibrillation, which does not appear to be new. Patient is nonverbal and will not awaken or answer questions during examination. All of history and information is obtained from old records. It does appear patient is a shelter resident at [facility] . She does have advanced dementia and it is reported that her is her DPISHMAEL whom wishes for her to be a do not resuscitate. Hospital Course This is a general summary of the patient's hospital course. For more details refer to the complete medical record. Hospital course: Impression Sepsis with tachycardia, leukocytosis, lactic acid-2.0 Right-sided pneumonia, possible aspiration Right pleural effusion Human metapneumovirus respiratory infection Acute encephalopathy Advanced dementia [id number]-[id number] Escherichia coli (culture at [facility] [place]) Right renal mass Atrial fibrillation-chronic Permanent pacemaker Hypertension Diabetes mellitus, type II CAD, history of stents Coagulopathy due to warfarin Parkinson's disease Dysphasia Hypernatremia-POA Hypokalemia 08/23/17 Admit to ICU under the care of Dr. Montgomery for sepsis, encephalopathy Transfer records and laboratory studies reviewed from earlier today. qSOAF score on admission is 2/3- indication high risk of poor outcome related to sepsis/infection Respiratory viral panel obtained and positive for human metapneumovirus. Will continue with IV Rocephin/azithromycin for pulmonary/urine coverage. Sputum culture, Gram stain. Will schedule DuoNeb breathing treatments 4 times a day and Pulmicort twice a day. Normal saline at 100 ML per hour for gentle hydration. Will need to monitor for evidence of fluid overload. Speech therapy consultation is placed. Given concern for dysphasia and altered mental status. She may not be able to take oral medications. Do not resuscitate order was written upon admission. 08/24/17 Restless, requiring Ativan and morphine for sedation. Speech therapy evaluation initiated-pured diet/thickened liquids. 08/25/17 Antibiotics changed to Zosyn/vancomycin due to concern for aspiration pneumonia and in light of recent hospitalizations. Patient able to mumble a few words, at baseline per her . Multiple home medications remain on hold; comfort care management discussion initiated. Sodium level 156-IV fluids changed to D5W. INR 7.68-warfarin on hold. 08/26/17 Patient resting comfortably, persistent wet coarse/cough. 08/27/17 Chest x-ray worsened yesterday with increased infiltrate/effusion-plan CT to better define; thoracentesis briefly discussed with the patient's . Probable aspiration pneumonia Minimally responsive, unable to take oral medications. asking about comfort care/do not hospitalize option for future. Sodium improved somewhat following diuresis yesterday, continue. 08/28/17 Right pleural effusion/infiltrate-multiloculated effusion on CT, CRP significantly elevated. CT reviewed with the patient's . We had a lengthy discussion regarding possible thoracentesis for diagnostic purposes but I also advised him that if there is evidence of infection in the pleural fluid treatment will be problematic in that I don't believe she is a candidate for thoracotomy. Pulmonary consultation offered; he wishes discuss further with family but is considering thoracentesis for additional information and in the event that it would allow his to breathe more comfortably. Hold Lovenox in a.m. pending decision. Warfarin on hold. Continue vancomycin/Zosyn. We additionally discussed recurrent aspiration in the setting of advanced dementia, feeding tube option and whether the patient had previously discussed her wishes with him when she was able to do so. Given her advanced disease I recommended against feeding tube. Hospice consultation again discussed and I frankly advised the patient that I believe his is dying and that treatment can prolong but not prevent her . Complex right renal mass incidentally identified by CT, discussed with - advised him that I don't believe the patient is a candidate for surgery and subsequently biopsy is not indicated. Fosfomycin given for Escherichia coli UTI today. Recurrent hypernatremia with hypokalemia; D5 with potassium initiated to address electrolytes. Renal function has normalized-will not re-dose diuretics today. 08/29/17 Patient's [id number] called me earlier today to review CT findings and prognosis indicating that she felt the patient's was a little overwhelmed and may not be tracking or discussions well. She additionally reported that the patient has had escalating numbers of hospitalizations in [place] and recent months and her quality of life has deteriorated substantially over the past 2 months. I advised her that based on brief conversation with Mr. Saucedo this morning we've decided against thoracentesis and that he will be meeting with hospice representatives later today for information. Clinically patient is improving, has completed 1 week antibiotics for pneumonia and UTI was treated yesterday with fosfomycin. Discontinue vancomycin, continue Zosyn pending family decision regarding hospice. Potassium is normalized but hypernatremia persists, continue D5W without supplemental potassium. 08/30/17-discharge Patient's completed 1 week of IV antibiotics for aspiration pneumonia and single dose fosfomycin for multidrug-resistant UTI (administered 08/28). She is more alert yesterday/today than she was early in the hospital course. Speech is mumbled but intermittently phrases can be understood. Today she was able to tell me that she didn't feel too bad. reported that she has been speaking a little bit. Mr. Saucedo reports that he and family members met with [facility] yesterday and have signed on for hospice care during the terminal phase of the patient's life. She is scheduled to return to the shelter later today. No meaningful history can be elicited from the patient. Nursing reports she slept well and was too drowsy to take morning medications at the beginning of the shift. She has been afebrile overnight and blood pressure is stable. Oxygen saturation is 97% on 2 L and respirations are nonlabored with decreased breath sounds throughout. Cardiac rhythm sounds fairly regular today although patient's constant mumbling precludes clear identification of rhythm. Abdomen is benign. Stable for discharge; a number of medications have been discontinued including warfarin, several cardiac medications, and insulin (due to poor oral intake). Please refer to medication list below. Additional changes are anticipated after hospice refused medications. Dr. Whittington was updated on patient's status and hospital course. Time spent with patient: discharge greater than 30 minutes Discharge Plan - Med Rec/Dispo Referrals/Follow Up: Emili Whittington DO [Physician] - (at [facility] Instructions: Sepsis (GEN), Pneumonia (GEN) Prescriptions: New Albuterol/Ipratropium [Duoneb] 3 ml INH QID PRN each PRN Reason: Shortness Of Air Acetaminophen 650 mg PO QID solution Continue Cholecalciferol (Vitamin D3) [Vitamin D3] 1,000 unit PO WEEKLY Carbidopa/Levodopa 25/250 MG [Sinemet] 1.5 tab PO Q12H Guaifenesin/Dm [Mucinex Dm] 1 tab PO BID Digoxin 125 mcg PO DAILY Magnesium Hydroxide [Milk of Magnesia] 30 ml PO DAILY PRN PRN Reason: Constipation Acetaminophen [Acetaminophen ER] 650 mg PO Q8H PRN PRN Reason: Pain Sertraline [Zoloft] 100 mg PO NOON LORazepam [Ativan] 0.5 mg PO BID Melatonin 6 mg PO HS Famotidine [Pepcid] 20 mg PO HS Donepezil HCl [Aricept] 10 mg PO HS Oxybutynin Chloride 5 mg PO NOON Peg 3350 238 G Bottle [Miralax] 17 gm PO DAILY Buspirone [Buspar] 10 mg PO BID Acetaminophen 650 mg PO BID Potassium Chloride 10 meq PO DAILY Furosemide [Lasix] 20 mg PO BID Carvedilol [Coreg] 6.25 mg PO BIDBL Ropinirole [Requip] 3 mg PO TID Bisacodyl Supp [Dulcolax] 10 mg RECTALLY DAILY PRN PRN Reason: Constipation Nitroglycerin [Nitrostat] 0.4 mg SL Q5MIN3 PRN PRN Reason: Chest Pain Ondansetron HCl [Zofran] 4 mg PO Q6H PRN PRN Reason: Nausea &/Or Vomiting Discontinued Insulin Glargine [Lantus] 20 unit SQ HS Insulin Aspart [NovoLOG] 6 unit SQ TIDWM Warfarin [Coumadin] 2.5 mg PO 1900 Ranolazine SR [Ranexa] 500 mg PO BID Lisinopril [Zestril] 5 mg PO DAILY Isosorbide Mononitrate ER [Imdur] 30 mg PO DAILY Atorvastatin [Lipitor] 20 mg PO HS - Disposition 04 To [facility] Home/Facility
== END 2017-08-30 15:03 | disposition hospice, home (50) | DRG 871 ==
LOC: SUATTDRO 16:45 → CCU 16:45 → MED 08-25 14:26
PROVIDERS: ADMIT Internal Medicine; ATTEND Internal Medicine